=== PATIENT | female | born 1985 | race African-American/Black ===

== ENCOUNTER 2017-06-10 18:10 | Emergency (ER) | payer MEDICAID, OTHER ==
[~2017-06-10] VITALS: Ht 157.5 cm; Wt 65.0 kg
[~2017-06-10 18:10] MED LIST: CHLO.12%30 SSP; NAPR-576 PO; PENI500T PO
[2017-06-10 18:11] VITALS: BP 129/81; PULSE 95; RESP 16; TEMP 98.1; O2SAT 99
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
[2017-06-10] MEDS ORDERED: CYCL5TAB PO (18:47)
[2017-06-10] MEDS ORDERED: IBUP800T23 PO (18:47)
== END 2017-06-10 19:02 | disposition home or self-care (01) ==
LOC: NEPK 18:10
DX: S16.1XXA Strain of muscle, fascia and tendon at neck level, initial encounter (principal); M54.5 Low back pain; M25.562 Pain in left knee; R10.2 Pelvic and perineal pain; V43.52XA Car driver injured in collision with other type car in traffic accident, initial encounter; Z79.899 Other long term (current) drug therapy
CPT/HCPCS: 99283

== ENCOUNTER 2018-02-22 22:12 | Inpatient (IN) | payer MEDICAID, OTHER ==
[~2018-02-22] VITALS: Ht 157.5 cm; Wt 65.0 kg
[~2018-02-22 22:12] MED LIST changes: -CHLO.12%30 SSP; +CYCL5TAB PO; +IBUP1TAB7 PO; -NAPR-576 PO; -PENI500T PO
[2018-02-22 22:26] VITALS: BP 149/74; PULSE 79; RESP 18; TEMP 99.3; O2SAT 100
[2018-02-22] MEDS ORDERED: SODIUM CHLOR 0.9% 1000 ML INJ 1,000 ML IV SCH (22:39)
[2018-02-22] MEDS ORDERED: KETOROLAC TROMETHAMINE 30 MG/ML (IVP) VIAL IVP ONE (22:45)
[2018-02-22] MEDS ORDERED: SODIUM CHLORIDE 0.9% FLUSH 10 ML FLUSH IV FLUSH PRN (22:45)
[2018-02-22] MEDS ORDERED: ONDANSETRON ODT 4 MG TAB PO ONE (22:45)
[2018-02-22] MEDS ORDERED: MORPHINE SULFATE 8 MG/ML INJ IV PUSH ONE (22:45)
[2018-02-22 22:54] VITALS: RESP 16
[2018-02-22 22:57] LABS: AUTOMATED NEUTROPHIL # 5.7 TH/MM3 (1.8-7.7); BASOPHIL # 0.1 TH/MM3 (0-0.2); BASOPHIL % 0.8 % (0.0-2.0); EOSINOPHIL % 0.3 % (0.0-4.0); HEMATOCRIT 31.9 % (35.0-46.0); HEMOGLOBIN 10.7 GM/DL (11.6-15.3); LYMPH % 24.9 % (9.0-44.0); MEAN CELL VOLUME 85.5 FL (80.0-100.0); MEAN CORPUSCULAR HEMOGLOBIN 28.8 PG (27.0-34.0); MEAN CORPUSCULAR HGB CONC 33.7 % (32.0-36.0); MEAN PLATELET VOLUME 7.1 FL (7.0-11.0); MONO % 4.6 % (0.0-8.0); MONOCYTE # 0.4 TH/MM3 (0-0.9); NEUT % 69.4 % (16.0-70.0); PLATELET COUNT 560 TH/MM3 (150-450); RED BLOOD COUNT 3.73 MIL/MM3 (4.00-5.30); RED CELL DISTRIBUTION WIDTH 13.4 % (11.6-17.2); WHITE BLOOD COUNT 8.2 TH/MM3 (4.0-11.0)
--- NOTE | 2018-02-22 23:05 | PD ---
HPI Chief Complaint: GI Complaint Time Seen by Provider: 22:34 Travel History International Travel<30 days: No Contact w/Intl Traveler<30days: No Traveled to known affect area: No History of Present Illness HPI Patient is 32 years old she complains of abdominal pain. Location is right upper quadrant epigastrium. She has had the pain on and off for approximately 1 month. She was diagnosed with gallbladder stones initially 1 month ago and then again 1 week ago. She was discharged from [facility] ED with pain medication reports that have been helpful up until today. Pain is now constant and severe. She reports nausea and vomiting. She reports inability to tolerate p.o. intake. No fever. PFSH Past Medical History Medical History: Denies Significant Hx Blood Disorders: No Anxiety: No Depression: No Heart Rhythm Problems: Yes (HX OF SVT) Cancer: No Cardiovascular Problems: No Diminished Hearing: No Endocrine: No Genitourinary: Yes (previous STD) Immune Disorder: No Implanted Vascular Access Dvce: No Musculoskeletal: No Neurologic: No Psychiatric: No Reproductive: No Respiratory: No Immunizations Current: No Tetanus Vaccination: < 5 Years Influenza Vaccination: No PNEUMOCCOCAL Vaccine (Year): 2 ?: Not LMP: 02/14/2018 Menopausal: No : 1 Para: 1 Miscarriage: 0 : 0 Ectopic : No Ovarian Cysts: No Dilation and Curettage (D&C): No Tubal Ligation: No Past Surgical History Section: Yes Gynecologic Surgery: Yes () Other Surgery: Yes Social History Alcohol Use: Yes (occasionally) Tobacco Use: No Substance Use: No (PT DENIES) Allergies-Medications (Allergen,Severity, Reaction): Coded Allergies: No Known Allergies (Verified Adverse Reaction, Unknown, 02/22/18) Reported Meds & Prescriptions Reported Meds & Active Scripts Active Review of Systems Except as stated in HPI: all other systems reviewed are Neg General / Constitutional: No: Fever Physical Exam Narrative GENERAL: 32 yo F, pleasant, moderate distress Vital Signs Date Time Temp Pulse Resp B/P (MAP) Pulse Ox O2 Delivery O2 Flow Rate FiO2 02/22/18 22:54 16 02/22/18 22:26 99.3 79 18 149/74 (99) 100 SKIN: Warm and dry. HEAD: Atraumatic. Normocephalic. EYES: Pupils equal and round. No scleral icterus. No injection or drainage. ENT: No nasal bleeding or discharge. Mucous membranes pink and moist. NECK: Trachea midline. No JVD. CARDIOVASCULAR: Regular rate and rhythm. RESPIRATORY: No accessory muscle use. Clear to auscultation. Breath sounds equal bilaterally. ABDOMEN: Diffuse TTP to light tough. Soft. No distension. MUSCULOSKELETAL: Extremities without clubbing, cyanosis, or edema. No obvious deformities. NEUROLOGICAL: Awake and alert. No obvious cranial nerve deficits. Motor grossly within normal limits. Five out of 5 muscle strength in the arms and legs. Normal speech. PSYCHIATRIC: Appropriate mood and affect; insight and judgment normal. Data Data Last Documented VS Vital Signs Date Time Temp Pulse Resp B/P (MAP) Pulse Ox O2 Delivery O2 Flow Rate FiO2 02/22/18 23:46 18 02/22/18 22:26 99.3 79 149/74 (99) 100 Orders Orders Complete Blood Count With Diff (02/22/18 22:39) Comprehensive Metabolic Panel (02/22/18 22:39) Lipase (02/22/18 22:39) Us Abdomen Gallbladder (02/22/18 ) Iv Access Insert/Monitor (02/22/18 22:39) Ecg Monitoring (02/22/18 22:39) Oximetry (02/22/18 22:39) Sodium Chlor 0.9% 1000 Ml Inj (Ns 1000 M (02/22/18 22:39) Sodium Chloride 0.9% Flush (Ns Flush) (02/22/18 22:45) Ketorolac Inj (Toradol Inj) (02/22/18 22:45) Morphine Inj (Morphine Inj) (02/22/18 22:45) Ed Urine Pregnancytest Poc (02/22/18 22:39) Ondansetron Odt (Zofran Odt) (02/22/18 22:45) Piperacil-Tazo 4.5 Gm Premix (Zosyn 4.5 (02/22/18 23:45) Admit Order (Ed Use Only) (02/23/18 ) Vital Signs (Adult) Q4H (02/23/18 00:16) Diet Npo (02/23/18 Breakfast) Activity Oob With Assistance (02/23/18 00:16) Labs Laboratory Tests Test 02/22/18 22:45 White Blood Count 8.2 TH/MM3 Red Blood Count 3.73 MIL/MM3 Hemoglobin 10.7 GM/DL Hematocrit 31.9 % Mean Corpuscular Volume 85.5 FL Mean Corpuscular Hemoglobin 28.8 PG Mean Corpuscular Hemoglobin Concent 33.7 % Red Cell Distribution Width 13.4 % Platelet Count 560 TH/MM3 Mean Platelet Volume 7.1 FL Neutrophils (%) (Auto) 69.4 % Lymphocytes (%) (Auto) 24.9 % Monocytes (%) (Auto) 4.6 % Eosinophils (%) (Auto) 0.3 % Basophils (%) (Auto) 0.8 % Neutrophils # (Auto) 5.7 TH/MM3 Lymphocytes # (Auto) 2.0 TH/MM3 Monocytes # (Auto) 0.4 TH/MM3 Eosinophils # (Auto) 0.0 TH/MM3 Basophils # (Auto) 0.1 TH/MM3 CBC Comment DIFF FINAL Differential Comment Blood Urea Nitrogen 7 MG/DL Creatinine 0.75 MG/DL Random Glucose 94 MG/DL Total Protein 7.5 GM/DL Albumin 3.5 GM/DL Calcium Level 8.7 MG/DL Alkaline Phosphatase 271 U/L Aspartate Amino Transf (AST/SGOT) 223 U/L Alanine Aminotransferase (ALT/SGPT) 338 U/L Total Bilirubin 3.7 MG/DL Sodium Level 140 MEQ/L Potassium Level 3.4 MEQ/L Chloride Level 104 MEQ/L Carbon Dioxide Level 27.0 MEQ/L Anion Gap 9 MEQ/L Estimat Glomerular Filtration Rate 107 ML/MIN Lipase 103 U/L [facility] Medical Decision Making Medical Screen Exam Complete: Yes Emergency Medical Condition: Yes Medical Record Reviewed: Yes Differential Diagnosis Constipation, Gastritis, Acute Cholecystitis, Biliary Colic, Pancreatitis, CHU , Hepatitis, Bowel Obstruction, Cystitis, Mesenteric Ischemia, AAA, Appendicitis , Renal Stone/Hydronephrosis, GERD, perforated viscous Narrative Course CBC & BMP Diagram 02/22/18 22:45 Total Protein 7.5, Albumin 3.5, Calcium Level 8.7, Alkaline Phosphatase 271 H, Aspartate Amino Transf (AST/SGOT) 223 H, Alanine Aminotransferase (ALT/SGPT) 338 H, Total Bilirubin 3.7 H GB US: stones and sludge are seen, potential pericholecystic fluid however minimal to be present on review the images Zosyn started IV fluids started. d/w Dr Gresham for [facility] service Diagnosis Primary Impression: Cholecystitis Admitting Information Admitting Physician Requests: Admit Quentin Klein MD February 22, 2018 23:05
[2018-02-22 23:29] LABS: ALKALINE PHOSPHATASE 271 U/L (45-117); TOTAL BILIRUBIN ADULT 3.7 MG/DL (0.2-1.0); TOTAL PROTEIN 7.5 GM/DL (6.4-8.2)
[2018-02-22 23:31] LABS: ALBUMIN 3.5 GM/DL (3.4-5.0); ALT (GPT) 338 U/L (10-53); AST (GOT) 223 U/L (15-37); BLOOD UREA NITROGEN 7 MG/DL (7-18); CALCIUM 8.7 MG/DL (8.5-10.1); CHLORIDE 104 MEQ/L (98-107); CREATININE 0.75 MG/DL (0.50-1.00); GLOMERULAR FILTRATION RATE 107 ML/MIN (>89); GLUCOSE,RANDOM 94 MG/DL (74-106); SODIUM (NA) 140 MEQ/L (136-145)
[2018-02-22] MEDS ORDERED: PIPERACIL-TAZO 4.5 GM PREMIX 100 ML IV ONE (23:45)
--- NOTE | 2018-02-22 23:46 | RADRPT ---
EXAM DATE/TIME: 02/22/2018 23:04 [place] COMPARISON: No previous studies available for comparison. INDICATIONS : RUQ pain. MEDICAL HISTORY : Irregular heart beat. RUQ pain. SURGICAL HISTORY : section. ENCOUNTER: Initial ACUITY: 1 day PAIN SCORE: 10/10 LOCATION: Right upper quadrant MEASUREMENTS: LIVER: 17.8 cm length COMMON DUCT: 7 mm RIGHT KIDNEY: 9.8 x 4.3 x 3.3 cm FINDINGS: LIVER: Normal echotexture without focal lesion or ductal dilatation. COMMON DUCT: No intraluminal mass or stone visualized. GALLBLADDER: Multiple gallstones present with gallbladder sludge. PANCREAS: The visualized portions are within normal limits. RIGHT KIDNEY: No evidence of hydronephrosis, stone, or mass. CONCLUSION: 1. Multiple gallstones with gallbladder sludge. No acute findings. Bharathi Gerber MD on February 22, 2018 at 23:42 Board Certified Radiologist. This report was verified electronically.
[2018-02-23] MEDS ORDERED: LACTULOSE SYRUP 20 GM/30 ML CUP PO PRN (00:45)
[2018-02-23] MEDS ORDERED: ACETAMINOPHEN 325 MG TAB PO PRN (00:45)
[2018-02-23] MEDS ORDERED: NALOXONE HCL 0.4 MG/ML AMP IV PUSH PRN (00:45)
[2018-02-23] MEDS ORDERED: SENNOSIDES 8.6 MG TAB PO PRN (00:45)
[2018-02-23] MEDS ORDERED: SODIUM CHLORIDE 0.9% FLUSH 10 ML FLUSH IV FLUSH PRN (00:45)
[2018-02-23] MEDS ORDERED: MAGNESIUM HYDROXIDE SUSP 30 ML CUP PO PRN (00:45)
[2018-02-23] MEDS ORDERED: BISACODYL 10 MG SUPP RECTAL PRN (00:45)
[2018-02-23 01:02] VITALS: BP 132/77; PULSE 64; RESP 16; O2SAT 100
[2018-02-23] MEDS: SODIUM CHLOR 0.9% 1000 ML INJ 1,000 ML IV SCH ×2 (01:41→12:31)
--- NOTE | 2018-02-23 01:50 | HHI.HP ---
[facility] No Primary Care Physician Admission Diagnosis Cholecystitis Diagnoses: Travel History International Travel<30 Days: No Contact w/Intl Traveler <30 Da: No Traveled to Known Affected Are: No History of Present Illness 32-year-old female with biliary colic/gallstones presents to the emergency department for evaluation of abdominal pain. The patient reports that approximately 2 months ago she was initially diagnosed with gallstones. She had a repeat episode last Friday where she was seen at [facility] and given pain medication and told to follow-up with a general surgeon. Patient has been unable to obtain a follow-up appointment and felt her pain was moderately well controlled on her pain medication until 2:30 PM yesterday. The patient reports she started having upper quadrant (right greater than left) abdominal pain that radiated to her back. She denies any emesis. No diarrhea. No fevers/chills. No chest pain or shortness of breath. No weakness. No lateralizing signs/symptoms. Review of Systems Except as stated in HPI: all other systems reviewed are Neg Past Family Social History Past Medical History Biliary colic Past Surgical History 2 Reported Medications Reported Meds & Active Scripts Active Allergies: Coded Allergies: No Known Allergies (Verified Adverse Reaction, Unknown, 02/22/18) Family History Negative for CAD/DM Social History Smokes approximately 2-3 cigarettes daily. Occasional alcohol. Denies illicit drugs. Physical Exam Vital Signs Vital Signs Date Time Temp Pulse Resp B/P (MAP) Pulse Ox O2 Delivery O2 Flow Rate FiO2 02/23/18 01:03 02/23/18 01:02 64 16 132/77 (95) 100 Room Air 02/22/18 23:46 18 02/22/18 22:54 16 02/22/18 22:26 99.3 79 18 149/74 (99) 100 Physical Exam GENERAL: -[place] female sitting up in bed SKIN: No rashes, ecchymoses or lesions. Cool and dry. HEAD: Atraumatic. Normocephalic. No temporal or scalp tenderness. EYES: Pupils equal round and reactive. Extraocular motions intact. No scleral icterus. No injection or drainage. ENT: Nose without bleeding, purulent drainage or septal hematoma. Throat without erythema, tonsillar hypertrophy or exudate. Uvula midline. Airway patent. NECK: Trachea midline. No JVD or lymphadenopathy. Supple, nontender, no meningeal signs. CARDIOVASCULAR: Regular rate and rhythm without murmurs, gallops, or rubs. RESPIRATORY: Clear to auscultation. Breath sounds equal bilaterally. No wheezes , rales, or rhonchi. GASTROINTESTINAL: Abdomen soft, tender to palpation worse in the right upper quadrant, nondistended. No hepato-splenomegaly, or palpable masses. No guarding. Negative Larson sign. MUSCULOSKELETAL: Extremities without clubbing, cyanosis, or edema. No joint tenderness, effusion, or edema noted. No calf tenderness. NEUROLOGICAL: Awake and alert. Cranial nerves II through XII intact. Motor and sensory grossly within normal limits. Normal speech. Laboratory Laboratory Tests Test 02/22/18 22:45 White Blood Count 8.2 Red Blood Count 3.73 Hemoglobin 10.7 Hematocrit 31.9 Mean Corpuscular Volume 85.5 Mean Corpuscular Hemoglobin 28.8 Mean Corpuscular Hemoglobin Concent 33.7 Red Cell Distribution Width 13.4 Platelet Count 560 Mean Platelet Volume 7.1 Neutrophils (%) (Auto) 69.4 Lymphocytes (%) (Auto) 24.9 Monocytes (%) (Auto) 4.6 Eosinophils (%) (Auto) 0.3 Basophils (%) (Auto) 0.8 Neutrophils # (Auto) 5.7 Lymphocytes # (Auto) 2.0 Monocytes # (Auto) 0.4 Eosinophils # (Auto) 0.0 Basophils # (Auto) 0.1 CBC Comment DIFF FINAL Differential Comment Blood Urea Nitrogen 7 Creatinine 0.75 Random Glucose 94 Total Protein 7.5 Albumin 3.5 Calcium Level 8.7 Alkaline Phosphatase 271 Aspartate Amino Transf (AST/SGOT) 223 Alanine Aminotransferase (ALT/SGPT) 338 Total Bilirubin 3.7 Sodium Level 140 Potassium Level 3.4 Chloride Level 104 Carbon Dioxide Level 27.0 Anion Gap 9 Estimat Glomerular Filtration Rate 107 Lipase 103 Result Diagram: 02/22/18224402/22/182244 Caprini VTE Risk Assessment Caprini VTE Risk Assessment: No/Low Risk (score <= 1) Caprini Risk Assessment Model Point Value = 1 Point Value = 2 Point Value = 3 Point Value = 5 Age 41-60 Minor surgery BMI > 25 kg/m2 Swollen legs Varicose veins or History of unexplained or recurrent spontaneous Oral contraceptives or hormone replacement Sepsis (< 1 month) Serious lung disease, including pneumonia (< 1 month) Abnormal pulmonary function Acute myocardial infarction Congestive heart failure (< 1 month) History of inflammatory bowel disease Medical patient at bed rest Age 61-74 Arthroscopic surgery Major open surgery (> 45 min) Laparoscopic surgery (> 45 min) Malignancy Confined to bed (> 72 hours) Immobilizing plaster cast Central venous access Age >= 75 History of VTE Family history of VTE Factor V Leiden Prothrombin [id number] Lupus anticoagulant Anticardiolipin antibodies Elevated serum homocysteine Heparin-induced thrombocytopenia Other congenital or acquired thrombophilia Stroke (< 1 month) Elective arthroplasty Hip, pelvis, or leg fracture Acute spinal cord injury (< 1 month) Prophylaxis Regimen Total Risk Factor Score Risk Level Prophylaxis Regimen 0-1 Low Early ambulation 2 Moderate Order ONE of the following: *Sequential Compression Device (SCD) *Heparin 5000 units SQ BID 3-4 Higher Order ONE of the following medications: *Heparin 5000 units SQ TID *Enoxaparin/Lovenox 40 mg SQ daily (WT < 150 kg, CrCl > 30 mL/min) *Enoxaparin/Lovenox 30 mg SQ daily (WT < 150 kg, CrCl > 10-29 mL/min) *Enoxaparin/Lovenox 30 mg SQ BID (WT < 150 kg, CrCl > 30 mL/min) AND/OR *Sequential Compression Device (SCD) 5 or more Highest Order ONE of the following medications: *Heparin 5000 units SQ TID (Preferred with Epidurals) *Enoxaparin/Lovenox 40 mg SQ daily (WT < 150 kg, CrCl > 30 mL/min) *Enoxaparin/Lovenox 30 mg SQ daily (WT < 150 kg, CrCl > 10-29 mL/min) *Enoxaparin/Lovenox 30 mg SQ BID (WT < 150 kg, CrCl > 30 mL/min) AND *Sequential Compression Device (SCD) Assessment and Plan Assessment and Plan Assessment/plan: 1. Abdominal pain/biliary colic/gallstones Gallbladder ultrasound multiple gallstones and gallbladder sludge Patient with transaminitis and total bilirubin of 3.7 Concern for retained stone or evolving cholecystitis Zosyn General surgery consulted, appreciate assistance Morphine for pain FEN N.p.o. Electrolytes: Monitor and replete as needed NS at 85 cc/hour Linda Gresham MD February 23, 2018 01:50
[2018-02-23 03:08] VITALS: BP 111/64; PULSE 67; RESP 16; TEMP 98.8; O2SAT 99
[2018-02-23] MEDS ORDERED: KETOROLAC TROMETHAMINE 30 MG/ML (IVP) VIAL IV PUSH ONE (05:15)
[2018-02-23 08:03] VITALS: BP 120/75; PULSE 65; RESP 16; TEMP 98.1; O2SAT 99
--- NOTE | 2018-02-23 08:08 | HHI.PR ---
Subjective Remarks Follow-up cholecystitis/choledocholithiasis? February 23, 2018-patient seen and examined, continued to complain of abdominal pain with radiation to her back. Denies any nausea vomiting. States, she was previously seen at [facility] and evaluated by general surgery and given follow-up appointment however she could not get booked for surgery. States the pain got worse and decided to come to the hospital yesterday. Patient denies any history of alcohol abuse only states social and drinks every other week Objective Vitals Vital Signs Date Time Temp Pulse Resp B/P (MAP) Pulse Ox O2 Delivery O2 Flow Rate FiO2 02/23/18 03:08 98.8 67 16 111/64 (80) 99 02/23/18 01:03 02/23/18 01:02 64 16 132/77 (95) 100 Room Air 02/22/18 23:46 18 02/22/18 22:54 16 02/22/18 22:26 99.3 79 18 149/74 (99) 100 I/O 02/22/18 02/22/18 02/22/18 02/23/18 02/23/18 02/23/18 07:00 15:00 23:00 07:00 15:00 23:00 Intake Total 1100 ml Balance 1100 ml Intake IV Total 1100 ml Result Diagram: 02/22/18 2245 02/22/18 2245 Imaging Last Impressions Gall Bladder Ultrasound 02/22/18 0000 Signed Impressions: Service Date/Time: Thursday, February 22, 2018 23:04 - CONCLUSION: 1. Multiple gallstones with gallbladder sludge. No acute findings. Bharathi Gerber MD Objective Remarks GENERAL: NAD SKIN: Warm and dry. HEAD: Normocephalic. EYES: No scleral icterus. No injection or drainage. NECK: Supple, trachea midline. No JVD or lymphadenopathy. CARDIOVASCULAR: Regular rate and rhythm without murmurs, gallops, or rubs. RESPIRATORY: Breath sounds equal bilaterally. No accessory muscle use. GASTROINTESTINAL: Abdomen soft, mildly tender, nondistended. +BS MUSCULOSKELETAL: No cyanosis, or edema. BACK: Nontender without obvious deformity. No CVA tenderness. A/P Problem List: (1) Cholelithiasis ICD Code: K80.20 - Calculus of gallbladder without cholecystitis without obstruction (2) Cholecystitis ICD Code: K81.9 - Cholecystitis, unspecified Status: Acute Assessment and Plan 32-year-old female 1. Abdominal pain/biliary colic/gallstones Gallbladder ultrasound multiple gallstones and gallbladder sludge Patient with transaminitis and total bilirubin of 3.7 Concern for retained stone or evolving cholecystitis Continue with Zosyn Hepatitis profile pending General surgery consulted, appreciate assistance Keep n.p.o. and continue morphine for pain Aneesh Metcalf MD February 23, 2018 08:08
[2018-02-23] MEDS: DOCUSATE SODIUM 50 MG/SENNA 8.6 MG TAB PO SCH ×2 (09:00→21:34)
[2018-02-23] MEDS: SODIUM CHLORIDE 0.9% FLUSH 10 ML FLUSH IV FLUSH SCH ×2 (09:00→21:00)
--- NOTE | 2018-02-23 10:28 | PD.CONS ---
HPI Service General Surgery Consult Requested By Dr. Gresham Reason for Consult gallbladder disease Primary Care Physician No Primary Care Physician History of Present Illness 32 yo F presents with abdominal pain. She was seen at [facility] last Friday about a week and a half ago for cholecystitis. She was discharged and has had epigastric and right upper quadrant abdominal pain radiating to the back persistently since that time. She has had nausea and vomiting and decreased oral intake. Past surgical history includes 2 C-sections. On evaluation here, she had normal white blood count, but bilirubin of 3.7 as well as elevated transaminases and alkaline phosphatase. Ultrasound of the gallbladder shows gallstones and sludge with 7 mm common bile duct. Review of Systems Constitutional: COMPLAINS OF: Change in appetite, DENIES: Fever, Chills Eyes: DENIES: Vision loss Ears, nose, mouth, throat: DENIES: Nasal discharge, Oral lesions Respiratory: DENIES: Cough, Shortness of breath Cardiovascular: DENIES: Chest pain, Palpitations Gastrointestinal: COMPLAINS OF: Abdominal pain, Nausea, Vomiting Musculoskeletal: DENIES: Joint Swelling, Back pain Integumentary: DENIES: Pruritus, Rash Neurologic: DENIES: Paresthesias, Seizures Past Family Social History Past Medical History None Past Surgical History 2 Reported Medications None Allergies: Coded Allergies: No Known Allergies (Verified Adverse Reaction, Unknown, 02/22/18) Active Ordered Medications Current Medications Medications (Trade) Dose Ordered Sig/Bud Route Start Time Stop Time Status Last Admin (NS Flush) 2 ml UNSCH PRN IV FLUSH 02/22/18 22:45 Piperacillin Sod/ Tazobactam Sod 50 ml @ 100 mls/hr Q6H IV 02/24/18 06:00 Sodium Chloride 1,000 ml @ 85 mls/hr [id number] IV 02/23/18 00:45 02/23/18 01:41 (NS Flush) 2 ml UNSCH PRN IV FLUSH 02/23/18 00:45 (NS Flush) 2 ml BID IV FLUSH 02/23/18 09:00 (Tylenol) 650 mg Q4H PRN PO 02/23/18 00:45 (Zofran Odt) 4 mg Q6H PRN SL 02/23/18 00:45 (Narcan Inj) 0.4 mg UNSCH PRN IV PUSH 02/23/18 00:45 (Jannet-Colace) 1 tab BID PO 02/23/18 09:00 (Milk Of Magnesia Liq) 30 ml Q12H PRN PO 02/23/18 00:45 (Senokot) 17.2 mg Q12H PRN PO 02/23/18 00:45 (Dulcolax Supp) 10 mg DAILY PRN RECTAL 02/23/18 00:45 (Lactulose Liq) 30 ml DAILY PRN PO 02/23/18 00:45 (Morphine Inj) 4 mg Q3H PRN IV PUSH 02/23/18 00:45 Family History Noncontributory Social History Occasional alcohol. Smokes a few cigarettes a day. Physical Exam Vital Signs Vital Signs Date Time Temp Pulse Resp B/P (MAP) Pulse Ox O2 Delivery O2 Flow Rate FiO2 02/23/18 08:03 98.1 65 16 120/75 (90) 99 02/23/18 03:08 98.8 67 16 111/64 (80) 99 02/23/18 01:03 02/23/18 01:02 64 16 132/77 (95) 100 Room Air 02/22/18 23:46 18 02/22/18 22:54 16 02/22/18 22:26 99.3 79 18 149/74 (99) 100 Physical Exam GENERAL: Awake and alert. No acute distress. Cooperative. HEAD: Normocephalic. Atraumatic. EYES: Pupils equal round and reactive to light bilaterally. No scleral icterus. ENT: Moist oral mucosa. NECK: Trachea midline. CHEST: Nonlabored breathing. No respiratory distress. CARDIOVASCULAR: Regular rate and rhythm. ABDOMEN: Mild distention. Moderate tenderness to palpation in the epigastrium and right upper quadrant. EXTREMITIES: No cyanosis or edema. SKIN: Warm, dry, nonjaundiced. Laboratory Laboratory Tests Test 02/22/18 22:45 02/23/18 08:29 White Blood Count 8.2 Red Blood Count 3.73 Hemoglobin 10.7 Hematocrit 31.9 Mean Corpuscular Volume 85.5 Mean Corpuscular Hemoglobin 28.8 Mean Corpuscular Hemoglobin Concent 33.7 Red Cell Distribution Width 13.4 Platelet Count 560 Mean Platelet Volume 7.1 Neutrophils (%) (Auto) 69.4 Lymphocytes (%) (Auto) 24.9 Monocytes (%) (Auto) 4.6 Eosinophils (%) (Auto) 0.3 Basophils (%) (Auto) 0.8 Neutrophils # (Auto) 5.7 Lymphocytes # (Auto) 2.0 Monocytes # (Auto) 0.4 Eosinophils # (Auto) 0.0 Basophils # (Auto) 0.1 CBC Comment DIFF FINAL Differential Comment Blood Urea Nitrogen 7 Creatinine 0.75 Random Glucose 94 Total Protein 7.5 Albumin 3.5 Calcium Level 8.7 Alkaline Phosphatase 271 Aspartate Amino Transf (AST/SGOT) 223 Alanine Aminotransferase (ALT/SGPT) 338 Total Bilirubin 3.7 Sodium Level 140 Potassium Level 3.4 Chloride Level 104 Carbon Dioxide Level 27.0 Anion Gap 9 Estimat Glomerular Filtration Rate 107 Lipase 103 Ethyl Alcohol Level LESS THAN 3 Result Diagram: 02/22/18 2245 02/22/18 2245 Imaging Last Impressions Gall Bladder Ultrasound 02/22/18 0000 Signed Impressions: Service Date/Time: Thursday, February 22, 2018 23:04 - CONCLUSION: 1. Multiple gallstones with gallbladder sludge. No acute findings. Bharathi Gerber MD Assessment and Plan Assessment and Plan 32-year-old female with biliary colic and elevated LFTs. We need to rule out a common bile duct stone. I have ordered an MRCP. Repeat CBC and LFTs in the morning. If MRCP shows stone in the common duct need gastroenterology evaluation. Remain n.p.o. at this time. GhassanDeshawn marie MD February 23, 2018 10:28
[2018-02-23] MEDS ORDERED: KETOROLAC TROMETHAMINE 30 MG/ML (IVP) VIAL IV PUSH PRN (10:45)
--- NOTE | 2018-02-23 12:19 | RADRPT ---
EXAM DATE/TIME: 02/23/2018 11:07 [facility] COMPARISON: MRV BRAIN W/O CONTRAST, December 28, 2014, 10:09. INDICATIONS : Abdominal pain. Vomitting. MEDICAL HISTORY : None. SURGICAL HISTORY : section. ENCOUNTER: Initial ACUITY: 2 weeks PAIN SCORE: 10/10 LOCATION: upper quadrant abdomen TECHNIQUE: Multiplanar, multisequence magnetic resonance imaging of the abdomen was performed. High-resolution 3D dataset was utilized to reconstruct maximum-intensity projection (MIP) images. FINDINGS: The intrahepatic ducts are normal in caliber. The right and left hepatic duct is normal in caliber. T he proper hepatic is normal in caliber. There are numerous punctate gallstones evident within the gallbladder. The gallbladder wall appears m ildly thickened. There is no evidence of pericholecystic fluid. The gallbladder does appear mildly di stended. The reformatted images do demonstrate a single punctate filling defect in the distal common bile duct . This measures only approximately 2 mm. It is possible this represents a punctate stone though it is only visualized in a single projection. The pancreatic duct is normal in caliber. The hepatic parenchyma is unremarkable in appearance. The spleen, pancreas, adrenal glands and kidney s are intact. There is no retroperitoneal adenopathy. There is no free fluid identified. There is very limited imaging of the pelvis on the coronal images. There is a large cystic structure in the right adnexa measuring at least 11 x 6.6 cm. In addition, there is a 2.2 cm cyst arising in th e left adnexa. Pelvic ultrasound would be of benefit for further assessment. CONCLUSION: The examination demonstrates a distended gallbladder with numerous punctate stones within the gallbla dder. The gallbladder wall appears mildly thickened. There is a punctate filling defects seen in the distal duct on a single projection on the MRCP T2 images. This may represent a 1 mm stone in the dist al duct. The duct is at the upper limits of normal in size measuring approximate 6 mm. There is a large cystic structure arising in the right adnexa which is only partially visualized. Pre sumably, this is ovarian in origin it measures approximately 11.0 x 6.6 cm. Pelvic ultrasound would b e of benefit for further assessment. Quentin Simpson MD on February 23, 2018 at 11:54 Board Certified Radiologist. This report was verified electronically.
[2018-02-23] MEDS: ONDANSETRON ODT 4 MG TAB SL PRN ×2 (13:17→15:37)
--- NOTE | 2018-02-23 14:05 | PD.CONS ---
HPI History of Present Illness This is a 32 year old female with hx gallstones who presented to ER with abd pain, n/v. ONset 1 week ago. A week ago ago she went to [facility] ER and had CT and it showed ovarian cyst. She was sent home with pain meds. She was starting to feel better and then yesterday had worsening of pain. The pain is in the RUQ and epigastrium. Never had pain like this before. Denies heavy etoh consumption. Denies hx pancreatitis, liver problems. Not on blood thinners. MRCP showed filling defects, possible tone, CBD 6mm, gallstones, distended gallbladder. (Luba Mancia) PFSH Past Medical History Biliary colic Past Surgical History 2 (Luba Mancia) Coded Allergies: No Known Allergies (Verified Adverse Reaction, Unknown, 02/22/18) Family History Negative for CAD/DM Social History Smokes approximately 2-3 cigarettes daily. Occasional alcohol. Denies illicit drugs. (Luba Mancia) Review of Systems Constitutional: DENIES: Fever Endocrine: DENIES: Polydipsia Eyes: DENIES: Blurred vision Ears, nose, mouth, throat: DENIES: Hearing loss Respiratory: DENIES: Cough Cardiovascular: DENIES: Chest pain Gastrointestinal: COMPLAINS OF: Abdominal pain, Nausea, Vomiting, DENIES: Diarrhea, Hematemesis Genitourinary: DENIES: Urinary incontinence Musculoskeletal: COMPLAINS OF: Muscle aches Integumentary: DENIES: Abnormal pigmentation Hematologic/lymphatic: DENIES: Bruising Immunologic/allergic: DENIES: Eczema Neurologic: DENIES: Abnormal gait Psychiatric: DENIES: Confusion (Luba Mancia) GI Exam Vitals I&O Vital Signs Date Time Temp Pulse Resp B/P (MAP) Pulse Ox O2 Delivery O2 Flow Rate FiO2 02/23/18 08:03 98.1 65 16 120/75 (90) 99 02/23/18 03:08 98.8 67 16 111/64 (80) 99 02/23/18 01:03 02/23/18 01:02 64 16 132/77 (95) 100 Room Air 02/22/18 23:46 18 02/22/18 22:54 16 02/22/18 22:26 99.3 79 18 149/74 (99) 100 I/O 02/22/18 02/22/18 02/22/18 02/23/18 02/23/18 02/23/18 07:00 15:00 23:00 07:00 15:00 23:00 Intake Total 1100 ml Balance 1100 ml Intake IV Total 1100 ml Imaging Last Impressions Cholangiopancreatography MRI 02/23/18 0000 Signed Impressions: Service Date/Time: Friday, February 23, 2018 11:07 - CONCLUSION: The examination demonstrates a distended gallbladder with numerous punctate stones within the gallbladder. The gallbladder wall appears mildly thickened. There is a punctate filling defects seen in the distal duct on a single projection on the MRCP T2 images. This may represent a 1 mm stone in the distal duct. The duct is at the upper limits of normal in size measuring approximate 6 mm. There is a large cystic structure arising in the right adnexa which is only partially visualized. Presumably, this is ovarian in origin it measures approximately 11.0 x 6.6 cm. Pelvic ultrasound would be of benefit for further assessment. Quentin Simpson MD Gall Bladder Ultrasound 02/22/18 0000 Signed Impressions: Service Date/Time: Thursday, February 22, 2018 23:04 - CONCLUSION: 1. Multiple gallstones with gallbladder sludge. No acute findings. Bharathi Gerber MD Laboratory Test 02/22/18 22:45 02/23/18 08:29 White Blood Count 8.2 TH/MM3 Red Blood Count 3.73 MIL/MM3 Hemoglobin 10.7 GM/DL Hematocrit 31.9 % Mean Corpuscular Volume 85.5 FL Mean Corpuscular Hemoglobin 28.8 PG Mean Corpuscular Hemoglobin Concent 33.7 % Red Cell Distribution Width 13.4 % Platelet Count 560 TH/MM3 Mean Platelet Volume 7.1 FL Neutrophils (%) (Auto) 69.4 % Lymphocytes (%) (Auto) 24.9 % Monocytes (%) (Auto) 4.6 % Eosinophils (%) (Auto) 0.3 % Basophils (%) (Auto) 0.8 % Neutrophils # (Auto) 5.7 TH/MM3 Lymphocytes # (Auto) 2.0 TH/MM3 Monocytes # (Auto) 0.4 TH/MM3 Eosinophils # (Auto) 0.0 TH/MM3 Basophils # (Auto) 0.1 TH/MM3 CBC Comment DIFF FINAL Differential Comment Blood Urea Nitrogen 7 MG/DL Creatinine 0.75 MG/DL Random Glucose 94 MG/DL Total Protein 7.5 GM/DL Albumin 3.5 GM/DL Calcium Level 8.7 MG/DL Alkaline Phosphatase 271 U/L Aspartate Amino Transf (AST/SGOT) 223 U/L Alanine Aminotransferase (ALT/SGPT) 338 U/L Total Bilirubin 3.7 MG/DL Sodium Level 140 MEQ/L Potassium Level 3.4 MEQ/L Chloride Level 104 MEQ/L Carbon Dioxide Level 27.0 MEQ/L Anion Gap 9 MEQ/L Estimat Glomerular Filtration Rate 107 ML/MIN Lipase 103 U/L Ethyl Alcohol Level LESS THAN 3 MG/DL Hepatitis A IgM Antibody NONREACTIVE Hepatitis B Surface Antigen NONREACTIVE Hepatitis B Core IgM Antibody NONREACTIVE Hepatitis C IgG Antibody NONREACTIVE Physical Examination HEENT: Pupils round and reactive to light; normocephalic; atraumatic; no jaundice. Throat is clear. NECK: Neck is supple, no JVD, no lymphadenopathy. CHEST: Chest is clear to auscultation and percussion. CARDIAC: Regular rate and rhythm with no murmur gallop or rubs. ABDOMEN: Soft, nondistended, nontender; no hepatosplenomegaly; bowel sounds are present in all four quadrants. EXTREMITIES: No clubbing, cyanosis, or edema. SKIN: Normal; no rash; no jaundice. BOTTLE CAPPER: No focal deficits; alert and oriented times three. (Luba Mancia) Assessment and Plan Plan ASSESSMENT - abd pain, n/v - suspect choledocholithiasis. MRCP shows poss CBD stone, CBD 6mm, filling defect, gallstones, GB distended. US showed gallstones and sludge. GS following. - elevated LFTs - obstructive pattern. hep panel neg. denies heavy drinking PLAN - ERCP tomorrow - NPO after MN - obtain consent - monitor labs - further recs to follow pt seen by myself and Dr Melchor and this note is on her behalf (Luba Mancia) Physician Comments seen, examined agree with above (Dafne Melchor MD) Luba Mancia February 23, 2018 14:05 Dafne Melchor MD February 23, 2018 15:52
[2018-02-23] MEDS: MORPHINE SULFATE 4 MG/ML INJ IV PUSH PRN ×2 (15:37→19:46)
[2018-02-23 17:06] VITALS: BP 148/74; PULSE 61; RESP 16; TEMP 98.6; O2SAT 97
[2018-02-23] MEDS ORDERED: PROCHLORPERAZINE INJ 10 MG/2 ML VIAL IV PUSH PRN (18:45)
[2018-02-23 19:31] VITALS: BP 141/72; PULSE 63; RESP 16; TEMP 99; O2SAT 98
[2018-02-23 23:35] VITALS: BP 116/59; PULSE 77; RESP 16; TEMP 98.7; O2SAT 96
[2018-02-24] MEDS: SODIUM CHLOR 0.9% 1000 ML INJ 1,000 ML IV SCH ×3 (00:06→17:46)
[2018-02-24] MEDS: MORPHINE SULFATE 4 MG/ML INJ IV PUSH PRN (01:17)
[2018-02-24] MEDS ORDERED: CHLORHEXIDINE GLUCONATE 2 % 1 PACK (2 CLOTHS) TOPICAL PRN ×3 (03:00→22:15)
[2018-02-24] MEDS ORDERED: LACTATED RINGER'S 1000 ML IV PRN ×3 (03:00→22:15)
[2018-02-24] MEDS ORDERED: METOPROLOL TARTRATE 25 MG TAB PO PRN ×2 (03:00→16:00)
[2018-02-24] MEDS ORDERED: POVIDONE IODINE 5% (ANTISEPSIS KIT) 4 APPLICATIONS EACH NARE PRN ×3 (03:00→22:15)
[2018-02-24] MEDS ORDERED: SODIUM CHLORID 0.9% 500 ML IV PRN ×3 (03:00→22:15)
[2018-02-24] MEDS ORDERED: INSULIN HUMAN REGULAR 1,000 UNITS/10 ML VIAL SQ PRN (03:00)
[2018-02-24 03:39] VITALS: BP 104/53; PULSE 85; RESP 16; TEMP 98.5; O2SAT 95
[2018-02-24] MEDS: PIPERACIL-TAZO 3.375 GM PREMIX 50 ML IV SCH ×3 (04:49→18:42)
[2018-02-24 07:02] LABS: AUTOMATED NEUTROPHIL # 6.6 TH/MM3 (1.8-7.7); BASOPHIL % 0.3 % (0.0-2.0); EOSINOPHIL % 0.2 % (0.0-4.0); HEMATOCRIT 29.2 % (35.0-46.0); HEMOGLOBIN 9.7 GM/DL (11.6-15.3); LYMPHOCYTE # 1.4 TH/MM3 (1.0-4.8); MEAN CELL VOLUME 85.5 FL (80.0-100.0); MEAN CORPUSCULAR HEMOGLOBIN 28.5 PG (27.0-34.0); MEAN CORPUSCULAR HGB CONC 33.3 % (32.0-36.0); MEAN PLATELET VOLUME 7.4 FL (7.0-11.0); MONO % 4.6 % (0.0-8.0); MONOCYTE # 0.4 TH/MM3 (0-0.9); NEUT % 77.9 % (16.0-70.0); PLATELET COUNT 493 TH/MM3 (150-450); RED BLOOD COUNT 3.41 MIL/MM3 (4.00-5.30); RED CELL DISTRIBUTION WIDTH 13.9 % (11.6-17.2); WHITE BLOOD COUNT 8.4 TH/MM3 (4.0-11.0)
[2018-02-24 07:57] VITALS: BP 110/54; PULSE 80; RESP 18; TEMP 98.2; O2SAT 98
[2018-02-24 08:10] LABS: BLOOD UREA NITROGEN 6 MG/DL (7-18); CREATININE 0.56 MG/DL (0.50-1.00); GLOMERULAR FILTRATION RATE 150 ML/MIN (>89); GLUCOSE,RANDOM 68 MG/DL (74-106)
[2018-02-24 08:11] LABS: ALBUMIN 2.9 GM/DL (3.4-5.0); ALKALINE PHOSPHATASE 250 U/L (45-117); ALT (GPT) 227 U/L (10-53); AST (GOT) 93 U/L (15-37); BICARBONATE 23.4 MEQ/L (21.0-32.0); CALCIUM 8.1 MG/DL (8.5-10.1); CHLORIDE 108 MEQ/L (98-107); SODIUM (NA) 140 MEQ/L (136-145); TOTAL BILIRUBIN ADULT 1.7 MG/DL (0.2-1.0); TOTAL PROTEIN 6.3 GM/DL (6.4-8.2)
--- NOTE | 2018-02-24 09:01 | HHI.PR ---
Subjective Remarks Follow-up cholecystitis/choledocholithiasis? February 23, 2018-patient seen and examined, continued to complain of abdominal pain with radiation to her back. Denies any nausea vomiting. States, she was previously seen at [facility] and evaluated by general surgery and given follow-up appointment however she could not get booked for surgery. States the pain got worse and decided to come to the hospital yesterday. Patient denies any history of alcohol abuse only states social and drinks every other week February 24, 2018-patient seen and examined, patient now reports pain to left lower quadrant. Denies any nausea or emesis. MRCP positive for common bile duct stone. Currently n.p.o. Objective Vitals Vital Signs Date Time Temp Pulse Resp B/P (MAP) Pulse Ox O2 Delivery O2 Flow Rate FiO2 02/24/18 07:57 98.2 80 18 110/54 (72) 98 02/24/18 03:39 98.5 85 16 104/53 (70) 95 02/23/18 23:35 98.7 77 16 116/59 (78) 96 02/23/18 19:31 99.0 63 16 141/72 (95) 98 02/23/18 17:06 98.6 61 16 148/74 (98) 97 I/O 02/23/18 02/23/18 02/23/18 02/24/18 02/24/18 02/24/18 07:00 15:00 23:00 07:00 15:00 23:00 Intake Total 1100 ml 600 ml 50 ml Balance 1100 ml 600 ml 50 ml Intake Oral 600 ml 50 ml IV Total 1100 ml Result Diagram: 02/24/18 0625 02/24/18 0625 Imaging Last Impressions Cholangiopancreatography MRI 02/23/18 0000 Signed Impressions: Service Date/Time: Friday, February 23, 2018 11:07 - CONCLUSION: The examination demonstrates a distended gallbladder with numerous punctate stones within the gallbladder. The gallbladder wall appears mildly thickened. There is a punctate filling defects seen in the distal duct on a single projection on the MRCP T2 images. This may represent a 1 mm stone in the distal duct. The duct is at the upper limits of normal in size measuring approximate 6 mm. There is a large cystic structure arising in the right adnexa which is only partially visualized. Presumably, this is ovarian in origin it measures approximately 11.0 x 6.6 cm. Pelvic ultrasound would be of benefit for further assessment. Quentin Simpson MD Gall Bladder Ultrasound 02/22/18 0000 Signed Impressions: Service Date/Time: Thursday, February 22, 2018 23:04 - CONCLUSION: 1. Multiple gallstones with gallbladder sludge. No acute findings. Bharathi Gerber MD Objective Remarks GENERAL: NAD SKIN: Warm and dry. HEAD: Normocephalic. EYES: No scleral icterus. No injection or drainage. NECK: Supple, trachea midline. No JVD or lymphadenopathy. CARDIOVASCULAR: Regular rate and rhythm without murmurs, gallops, or rubs. RESPIRATORY: Breath sounds equal bilaterally. No accessory muscle use. GASTROINTESTINAL: Abdomen soft, mildly tender, nondistended. +BS MUSCULOSKELETAL: No cyanosis, or edema. BACK: Nontender without obvious deformity. No CVA tenderness. A/P Problem List: (1) Cholelithiasis ICD Code: K80.20 - Calculus of gallbladder without cholecystitis without obstruction (2) Cholecystitis ICD Code: K81.9 - Cholecystitis, unspecified Status: Acute (3) Choledocholithiasis ICD Code: K80.50 - Calculus of bile duct without cholangitis or cholecystitis without obstruction Assessment and Plan 32-year-old female 1. Abdominal pain/biliary colic/gallstones/choledocholithiasis Gallbladder ultrasound multiple gallstones and gallbladder sludge MRCP feb 23 2018 with evidence of common bile duct stone Appreciate input from GI and plan for ERCP with possible stent placement today February 24, 2018 Appreciate input from neurosurgery Continue with Zosyn Hepatitis profile negative Keep n.p.o. and continue morphine for pain Monitor bilirubin level Transaminitis Likely from the above LFTs trending down, continue to monitor level Anemia likely of iron deficiency Check iron study and treat accordingly Rule out fibroid Check pelvic ultrasound DVT prophylaxis: Ambulatory, low risk for VTE Aneesh Metcalf MD February 24, 2018 09:01
[2018-02-24] MEDS: DOCUSATE SODIUM 50 MG/SENNA 8.6 MG TAB PO SCH ×2 (09:27→20:03)
[2018-02-24] MEDS: SODIUM CHLORIDE 0.9% FLUSH 10 ML FLUSH IV FLUSH SCH ×2 (09:27→20:04)
[2018-02-24 11:13] LABS: % SATURATION IRON PROFILE 16.7 % (20-50); FERRITIN 15 NG/ML (8-252); IRON (FE) 52 MCG/DL (50-170); TOTAL IRON BINDING CAPACITY 312 MCG/DL (250-450)
[2018-02-24 11:43] VITALS: BP 111/58; PULSE 81; RESP 18; TEMP 98.6; O2SAT 100
[2018-02-24 11:45] VITALS: BP 121/64; PULSE 65; RESP 18; TEMP 98.5; O2SAT 99
[2018-02-24] MEDS ORDERED: SODIUM CHLORIDE 0.9% 10 ML VIAL IV ONE (12:00)
[2018-02-24] MEDS ORDERED: PROPOFOL 200 MG/20 ML AMP IV ONE (12:00)
[2018-02-24] MEDS ORDERED: DEXAMETHASONE SOD PHOS 4 MG/ML VIAL IV ONE (12:00)
[2018-02-24] MEDS ORDERED: ROCURONIUM INJ 50 MG/5 ML SYRINGE IV PUSH ONE (12:00)
[2018-02-24] MEDS ORDERED: ESMOLOL HCL 100 MG/10 ML VIAL IV ONE (12:00)
[2018-02-24] MEDS ORDERED: LIDOCAINE HCL 1% PF 5 ML SYRINGE OTHER ONE (12:00)
[2018-02-24] MEDS ORDERED: ONDANSETRON HCL 4 MG/2 ML VIAL IV ONE (12:00)
--- NOTE | 2018-02-24 12:05 | RADRPT ---
EXAM DATE/TIME: 02/24/2018 10:01 [facility] COMPARISON: No previous studies available for comparison. INDICATIONS : Pelvic pain. MEDICAL HISTORY : Gallstones. SURGICAL HISTORY : section. ENCOUNTER: Initial ACUITY: 1 day PAIN SCORE: 3/10 LOCATION: Bilateral pelvis MEASUREMENTS: UTERUS: 11.1 x 5.3 x 5.8 cm ENDOMETRIAL STRIPE: 7 mm RIGHT OVARY: 6.0 x 7.7 x 5.7 cm cm LEFT OVARY: 3.6 x 2.5 x 2.6 cm FINDINGS: UTERUS: There are 2 heterogeneous mixed echogenicity solid myometrial masses. The largest is near the fundus measuring 4.0 x 4.2 x 3.6 cm. Second measures 1.6 x 1.0 x 1.5 cm in the body. RIGHT OVARY: Large cyst in the right ovary with inferior septations measuring 11.7 x 7.1 x 6.0 cm. Right ovary oth erwise appears unremarkable with blood flow demonstrated in the ovarian tissue. LEFT OVARY: 2.9 x 2.4 x 1.8 cm simple cyst in the left ovary which otherwise appears unremarkable. MISCELLANEOUS: Small amount of free fluid in the pelvis. CONCLUSION: 1. Two heterogeneous myometrial masses likely reflecting uterine leiomyomas with the largest measurin g 4.2 cm near the fundus. 2. Minimally complex large right ovarian cyst measuring up to 11.7 cm. Please see recommendation donna w. 3. Simple 2.9 cm left ovarian cyst which does not require followup. 4. Small amount of free fluid in the pelvis. Pelvic ultrasound follow-up in 6-12 weeks is recommended for hemorrhagic adnexal cysts 5-7 cm in wome n of reproductive age. If unchanged or unresolved, follow with contrast-enhanced pelvic MRI or ultra sound. Unless classic endometrioma or dermoid is then confirmed on contrast-enhanced pelvic MRI or u ltrasound follow-up, consider surgical consultation. Reference: Simran See MD, et al. Manageme nt of Asymptomatic Ovarian and Other Adnexal Cysts Imaged at Ultrasound: Society of Radiologists in U ltrasound Consensus Conference Statement. Radiology 2010; 256:[id number]. Jamey Thomson MD on February 24, 2018 at 11:51 Board Certified Radiologist. This report was verified electronically.
--- NOTE | 2018-02-24 12:46 | HHI.PR ---
Subjective Subjective Notes Abdominal pain improving. For ERCP this afternoon. Objective Vitals/I&O Vital Signs Date Time Temp Pulse Resp B/P (MAP) Pulse Ox O2 Delivery O2 Flow Rate FiO2 02/24/18 11:43 98.6 81 18 111/58 (75) 100 02/23/18 01:02 Room Air Labs Laboratory Tests Test 02/24/18 06:25 White Blood Count 8.4 Red Blood Count 3.41 Hemoglobin 9.7 Hematocrit 29.2 Mean Corpuscular Volume 85.5 Mean Corpuscular Hemoglobin 28.5 Mean Corpuscular Hemoglobin Concent 33.3 Red Cell Distribution Width 13.9 Platelet Count 493 Mean Platelet Volume 7.4 Neutrophils (%) (Auto) 77.9 Lymphocytes (%) (Auto) 17.0 Monocytes (%) (Auto) 4.6 Eosinophils (%) (Auto) 0.2 Basophils (%) (Auto) 0.3 Neutrophils # (Auto) 6.6 Lymphocytes # (Auto) 1.4 Monocytes # (Auto) 0.4 Eosinophils # (Auto) 0.0 Basophils # (Auto) 0.0 CBC Comment DIFF FINAL Differential Comment Blood Urea Nitrogen 6 Creatinine 0.56 Random Glucose 68 Total Protein 6.3 Albumin 2.9 Calcium Level 8.1 Alkaline Phosphatase 250 Aspartate Amino Transf (AST/SGOT) 93 Alanine Aminotransferase (ALT/SGPT) 227 Total Bilirubin 1.7 Sodium Level 140 Potassium Level 3.6 Chloride Level 108 Carbon Dioxide Level 23.4 Anion Gap 9 Estimat Glomerular Filtration Rate 150 Iron Level 52 Total Iron Binding Capacity 312 Percent Iron Saturation 16.7 Ferritin 15 Direct Bilirubin 1.0 Radiology Last Impressions Gall Bladder Ultrasound 02/22/18 0000 Signed Impressions: Service Date/Time: Thursday, February 22, 2018 23:04 - CONCLUSION: 1. Multiple gallstones with gallbladder sludge. No acute findings. Bharathi Gerber MD Narrative Exam No distess Abd: moderate epigastric ttp A/P Assessment and Plan 32 yo F with choledocholithiasis. She had no obvious gallbladder inflammation on u/s and normal WBC, so likely not acute cholecystitis. For ERCP today. Discussed with patient in detail. If improving after ERCP she can be discharged home and will f/u with me in two weeks for outpatient surgery planning. Please call if surgery needed back on the case. Deshawn Ferrell MD February 24, 2018 12:46
[2018-02-24] MEDS ORDERED: INDOMETHACIN 50 MG SUPP RECTAL ONE (16:31)
[2018-02-24] MEDS ORDERED: SUGAMMADEX SODIUM 200 MG/2 ML VIAL IV PUSH ONE (16:57)
[2018-02-24 18:00] VITALS: BP 143/69; PULSE 61; RESP 18; TEMP 98.6; O2SAT 99
[2018-02-24] MEDS ORDERED: DO NOT ADM ANY ANTICOAGULANT DRUGS PRN (19:00)
[2018-02-24 20:00] VITALS: BP 139/84; PULSE 72; RESP 18; TEMP 99; O2SAT 99
--- NOTE | 2018-02-24 22:34 | RADRPT ---
EXAM DATE/TIME: 02/24/2018 15:57 [facility] COMPARISON: MRCP W/O CONTRAST, February 23, 2018, 11:07. INDICATIONS : Gallstones. FLUORO TIME: 2.03 minutes IMAGE COUNT: 8 CONTRAST: Instilled by Ordering Physician MEDICAL HISTORY : Smoker. SURGICAL HISTORY : section. ENCOUNTER: Subsequent ACUITY: 3 days PAIN SCORE: Non-responsive. LOCATION: Abdomen. FINDINGS: An ERCP was performed by the ordering physician. The images demonstrate good opacification of the intra-and extra hepatic biliary tree. No definite fi lling defects or other focal abnormalities identified. CONCLUSION: ERCP as above. Adams Arboleda MD on February 24, 2018 at 22:29 Board Certified Radiologist. This report was verified electronically.
[2018-02-25] MEDS: PIPERACIL-TAZO 3.375 GM PREMIX 50 ML IV SCH ×4 (01:02→17:30)
[2018-02-25 03:45] VITALS: BP 137/61; PULSE 59; RESP 18; TEMP 98.3; O2SAT 99
[2018-02-25] MEDS: SODIUM CHLOR 0.9% 1000 ML INJ 1,000 ML IV SCH ×3 (05:17→20:26)
[2018-02-25 08:00] VITALS: BP 134/75; PULSE 64; RESP 16; TEMP 99.4; O2SAT 99
[2018-02-25 08:29] LABS: ALBUMIN 2.9 GM/DL (3.4-5.0); DIRECT BILIRUBIN ADULT 0.6 MG/DL (0.0-0.2); INDIRECT BILIRUBIN 0.5 MG/DL (0.0-0.8); TOTAL BILIRUBIN ADULT 1.1 MG/DL (0.2-1.0); TOTAL PROTEIN 7.3 GM/DL (6.4-8.2)
[2018-02-25] MEDS: DOCUSATE SODIUM 50 MG/SENNA 8.6 MG TAB PO SCH ×2 (08:57→20:22)
--- NOTE | 2018-02-25 09:07 | HHI.PR ---
Subjective Remarks Follow-up abdominal pain. Patient going for cholecystectomy later today. Status post ERCP yesterday. Abdominal pain has improved following the procedure. No chest pain, dyspnea, nausea, vomiting. Objective Vitals Vital Signs Date Time Temp Pulse Resp B/P (MAP) Pulse Ox O2 Delivery O2 Flow Rate FiO2 02/25/18 03:45 98.3 59 18 137/61 (86) 99 02/24/18 20:00 99.0 72 18 139/84 (102) 99 02/24/18 18:45 Room Air 02/24/18 18:00 98.6 61 18 143/69 (93) 99 02/24/18 17:45 97.3 75 18 130/87 (101) 100 Room Air 02/24/18 17:30 94 18 133/82 (99) 99 Room Air 02/24/18 17:14 97.1 94 16 136/89 (105) 99 Room Air 02/24/18 16:16 98.9 86 20 132/82 (99) 100 02/24/18 11:45 98.5 65 18 121/64 (83) 99 02/24/18 11:43 98.6 81 18 111/58 (75) 100 I/O 02/24/18 02/24/18 02/24/18 02/25/18 02/25/18 02/25/18 07:00 15:00 23:00 07:00 15:00 23:00 Intake Total 50 ml 2000 ml 700 ml Output Total 175 ml Balance 50 ml 1825 ml 700 ml Intake Oral 50 ml 600 ml IV Total 1000 ml 100 ml Other 1000 ml Output Urine Total 175 ml # Voids 2 # Bowel Movements 0 Result Diagram: 02/24/18 0625 02/24/18 0625 Imaging Last Impressions Pelvis Ultrasound 02/24/18 0000 Signed Impressions: Service Date/Time: Saturday, February 24, 2018 10:01 - CONCLUSION: 1. Two heterogeneous myometrial masses likely reflecting uterine leiomyomas with the largest measuring 4.2 cm near the fundus. 2. Minimally complex large right ovarian cyst measuring up to 11.7 cm. Please see recommendation below. 3. Simple 2.9 cm left ovarian cyst which does not require followup. 4. Small amount of free fluid in the pelvis. Pelvic ultrasound follow-up in 6-12 weeks is recommended for hemorrhagic adnexal cysts 5-7 cm in women of reproductive age. If unchanged or unresolved, follow with contrast-enhanced pelvic MRI or ultrasound. Unless classic endometrioma or dermoid is then confirmed on contrast-enhanced pelvic MRI or ultrasound follow-up, consider surgical consultation. Reference: Simran See MD GI Procedure 02/24/18 0000 Signed Impressions: Service Date/Time: Saturday, February 24, 2018 15:57 - CONCLUSION: ERCP as above. Adams Arboleda MD Cholangiopancreatography MRI 02/23/18 0000 Signed Impressions: Service Date/Time: Friday, February 23, 2018 11:07 - CONCLUSION: The examination demonstrates a distended gallbladder with numerous punctate stones within the gallbladder. The gallbladder wall appears mildly thickened. There is a punctate filling defects seen in the distal duct on a single projection on the MRCP T2 images. This may represent a 1 mm stone in the distal duct. The duct is at the upper limits of normal in size measuring approximate 6 mm. There is a large cystic structure arising in the right adnexa which is only partially visualized. Presumably, this is ovarian in origin it measures approximately 11.0 x 6.6 cm. Pelvic ultrasound would be of benefit for further assessment. Quentin Simpson MD Gall Bladder Ultrasound 02/22/18 0000 Signed Impressions: Service Date/Time: Thursday, February 22, 2018 23:04 - CONCLUSION: 1. Multiple gallstones with gallbladder sludge. No acute findings. Bharathi Gerber MD Objective Remarks Examined in the presence of the nurse. General: No acute distress. Heart: Regular rate and rhythm. No murmur. Lungs: Clear to auscultation bilaterally. No wheezes, rales, or rhonchi. Breathing is nonlabored. Abdomen: Soft, mild tenderness in the right upper quadrant without rebound or guarding, nondistended. Extremities: No lower extremity edema. Psych: Alert and oriented. Neuro: Normal speech. No focal deficits noted. Procedures 02/24/18 ERCP Urinary Catheter: No Vascular Central Line Catheter: No A/P Problem List: (1) Cholelithiasis ICD Code: K80.20 - Calculus of gallbladder without cholecystitis without obstruction (2) Cholecystitis ICD Code: K81.9 - Cholecystitis, unspecified Status: Acute (3) Choledocholithiasis ICD Code: K80.50 - Calculus of bile duct without cholangitis or cholecystitis without obstruction Assessment and Plan 1. Abdominal pain, choledocholithiasis: Status post MRCP, ERCP. Appreciate general surgery and gastroenterology recommendations. Going for cholecystectomy today. Continue Zosyn. Monitor labs. 2. Transaminitis: LFTs are trending down. Secondary to above. 3. Ovarian cyst, uterine fibroids: Patient will need follow-up imaging. Consult gynecology. Discussed at length with patient the importance of follow- up. 4. Anemia, likely iron deficiency: H&H decreased slightly. Monitor labs. 5. DVT prophylaxis: Ambulatory. No chemical prophylaxis in anticipation of surgery. Aldo Mcgowan MD February 25, 2018 09:07
[2018-02-25 12:00] VITALS: BP 133/75; PULSE 67; RESP 16; TEMP 98.3; O2SAT 100
[2018-02-25] MEDS ORDERED: NEOSTIGMINE 5 MG/5 ML SYRINGE IV PUSH ONE (12:00)
[2018-02-25] MEDS ORDERED: GLYCOPYRROLATE 1 MG/5 ML SYRINGE IV PUSH ONE (12:00)
[2018-02-25] MEDS: SODIUM CHLORIDE 0.9% FLUSH 10 ML FLUSH IV FLUSH SCH ×2 (12:00→20:22)
[2018-02-25] MEDS ORDERED: LIDOCAINE HCL 1% PF 5 ML SYRINGE OTHER ONE (12:00)
[2018-02-25] MEDS ORDERED: ONDANSETRON HCL 4 MG/2 ML VIAL IV ONE (12:00)
[2018-02-25] MEDS ORDERED: DEXAMETHASONE SOD PHOS 4 MG/ML VIAL IV ONE (12:00)
[2018-02-25] MEDS ORDERED: PROPOFOL 200 MG/20 ML AMP IV ONE (12:00)
[2018-02-25] MEDS ORDERED: ROCURONIUM INJ 50 MG/5 ML SYRINGE IV PUSH ONE (12:00)
--- NOTE | 2018-02-25 12:09 | PD.CONS ---
HPI Chief Complaint Ovarian cyst Date Seen: February 25, 2018 Travel History International Travel<30 Days: No Contact w/Intl Traveler<30Days: No Known Affected Area: No History of Present Illness HPI The patient is a pleasant 32 year old female admitted following RUQ abdominal pain and found to have choledocholithiasis. ROVING SIZER has been consulted as the patient was found to have a large right ovarian cyst on MRCP. The patient reports she was first told she had this ovarian cyst about 2 months ago while hospitalized at [facility]. She reports she thinks she may have had some lower abdominal/pelvic fullness however not severe enough to interfere with her work or caused her to have any pain or discomfort. She denies any abnormal vaginal discharge or bleeding. She remains sexually active. Denies dyspareunia. She denies any known family history of uterine or ovarian pathology. The patient is a and reports she previously saw Dr. Brock for her prior pregnancies. Para: 2 : 2 History Past Medical History Narrative Medical Biliary colic Obstetric History Obstetric History Past Surgical History Narrative Surgical 2 Family History Narrative Family History Patient reports no known pertinent family history Social History Narrative Social History Smokes approximately 2-3 cigarettes daily. Occasional alcohol. Denies illicit drugs. Allergies-Medications (Allergen,Severity, Reaction): Coded Allergies: No Known Allergies (Verified Adverse Reaction, Unknown, 02/22/18) Home Meds Discontinued Scripts Ibuprofen (Ibuprofen) 800 Mg Tab, 800 MG PO Q8H Y for Pain/Inflammation, #21 TAB 0 Refills Prov:Soniya Mclain MD 06/10/17 Cyclobenzaprine (Flexeril) 5 Mg Tab, 5 MG PO TID for Muscle Spasm, #15 TAB 0 Refills Prov:Soniya Mclain MD 06/10/17 Review of Systems Except as stated in HPI: all other systems reviewed are Neg Physical Exam Vital Signs Date Time Temp Pulse Resp B/P (MAP) Pulse Ox O2 Delivery O2 Flow Rate FiO2 02/25/18 08:00 99.4 64 16 134/75 (94) 99 02/25/18 03:45 98.3 59 18 137/61 (86) 99 02/24/18 20:00 99.0 72 18 139/84 (102) 99 02/24/18 18:45 Room Air 02/24/18 18:00 98.6 61 18 143/69 (93) 99 02/24/18 17:45 97.3 75 18 130/87 (101) 100 Room Air 02/24/18 17:30 94 18 133/82 (99) 99 Room Air 02/24/18 17:14 97.1 94 16 136/89 (105) 99 Room Air 02/24/18 16:16 98.9 86 20 132/82 (99) 100 Narrative GENERAL: Well-nourished, well-developed patient. SKIN: Warm and dry. HEAD: Normocephalic and atraumatic. EYES: No scleral icterus. No injection or drainage. ENT: No nasal drainage noted. Mucous membranes pink. Airway patent. NECK: Supple, trachea midline. No JVD. CARDIOVASCULAR: Regular rate and rhythm without murmurs, gallops, or rubs. RESPIRATORY: Breath sounds equal bilaterally. No accessory muscle use. ABDOMEN/GI: Abdomen soft, non-tender, no rebound, no guarding GENITOURINARY (performed by Dr. Macario with female student present in room): External Genitalia: intact and normal in appearance Cervix: [-] EXTREMITIES: No cyanosis or edema. BACK: Nontender without obvious deformity. NEUROLOGICAL: Awake and alert. Motor and sensory grossly within normal limits. Normal speech. Data Data Vital Signs Reviewed: Yes Orders Orders Lactated Ringer's 1000 Ml Inj (Lr 1000 M (02/24/18 16:00) Sodium Chlorid 0.9% 500 Ml Inj (Ns 500 M (02/24/18 16:00) Metoprolol Tartrate (Lopressor) (02/24/18 16:00) Povidone Iod 5% Antisepsis Kit (Betadine (02/24/18 16:00) Chlorhexidine 2% Cloth (Chlorhexidine 2% (02/24/18 16:00) Gi Lab Preop/Recover-Statistic (02/24/18 ) Indomethacin Supp (Indocin Supp) (02/24/18 16:31) Sugammadex Inj (Bridion Inj) (02/24/18 16:57) Consent (02/24/18 ) Diet Regular Basic (02/24/18 Dinner) Diet Npo (02/25/18 Breakfast) Hepatic Functional Panel (02/25/18 06:00) Lipase (02/25/18 06:00) Consent (02/24/18 18:39) Class Iv Pacu Ea 30 Min (02/24/18 ) General/Pacu (02/24/18 ) Nursing Information ([facility] Nursing Inform (02/24/18 19:00) Gi Lab - Ercp (02/24/18 ) Sleeve, Knee Sequential Lai Pr (02/24/18 21:00) Diet Progression Instructions (02/24/18 21:00) ^ Obtain (02/24/18 21:00) ^ Lab Studies (02/24/18 21:00) ^ Write Order (02/24/18 21:00) Scd / Lai / Foot Pump JOSE.QSHIFT (02/24/18 21:00) ^ Iv Setup For Or (02/24/18 21:00) IV (02/24/18 21:00) ^ Iv Piggyback For Or (02/24/18 21:00) Bedside Glucose .Prior to OR (02/24/18 21:00) ^ Medication Indications (02/24/18 21:00) Lactated Ringer's 1000 Ml Inj (Lr 1000 M (02/24/18 22:15) Sodium Chlorid 0.9% 500 Ml Inj (Ns 500 M (02/24/18 22:15) Povidone Iod 5% Antisepsis Kit (Betadine (02/24/18 22:15) Chlorhexidine 2% Cloth (Chlorhexidine 2% (02/24/18 22:15) Physician Name Changes (02/25/18 ) Consult Gynecology (02/25/18 ) ^ Other Nursing Orders (02/25/18 10:07) (Hub Use Only)Inp Phy Cons/Ref (02/25/18 ) Labs Laboratory Tests Test 02/25/18 07:16 Total Bilirubin 1.1 Direct Bilirubin 0.6 Indirect Bilirubin 0.5 Aspartate Amino Transf (AST/SGOT) 39 Alanine Aminotransferase (ALT/SGPT) 173 Alkaline Phosphatase 224 Total Protein 7.3 Albumin 2.9 Lipase 610 MDM Medical Record Reviewed: Yes Plan 32-year-old female found to have a large right ovarian cyst minimally complex measuring 11.7 x 7.1 x 6.0. Case was discussed with Dr. Macario with ROVING SIZER wardrobe consultant physician as well as the office of Dr. Cass Young. The patient is currently asymptomatic apart from mild lower abdominal fullness she describes similar to sensation of constipation. Discussed with the patient the risk of ovarian torsion and warning signs and symptoms that would warrant immediate evaluation by a physician or in the ED. Plan will be for the patient to establish with Dr. Young, ROVING SIZER/Oncology as an outpatient for further management. Patient was informed of follow up plan as an outpatient. Seen and discussed with Dr. Macario. Admitting diagnosis: Cholecystitis Alen Hartley MD R2 February 25, 2018 12:09
--- NOTE | 2018-02-25 12:37 | HHI.PR ---
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 Button Grader consulted for 11.7cm R minimally complex R ovarian cyst with internal septations that was discovered on imaging for her gallbladder. She has been asymptomatic and without any pelvic pain; she reports a sensation of some "mild fullness." Consultation called in close proximity to patient undergoing scheduled cholecystectomy. Pelvic examination revealed a normal appearing cervix, rugae, and physiologic discharge. No cervical or vaginal masses were noted. SVE with uterus approximately 10 week size, no uterine or adnexal tenderness, no discrete adnexal mass noted but patient with limited tolerance to examination. Patient declined rectovaginal examination. Discussed with high rigger oncology PA and subsequently Dr. Young who will schedule office evaluation and followup if no emergent indication at this time. Discussed with the patient who is in agreement with this plan. Objective Vital Signs Date Time Temp Pulse Resp B/P (MAP) Pulse Ox O2 Delivery O2 Flow Rate FiO2 02/25/18 12:00 98.3 67 16 133/75 (94) 100 02/25/18 08:00 99.4 64 16 134/75 (94) 99 02/25/18 03:45 98.3 59 18 137/61 (86) 99 02/24/18 20:00 99.0 72 18 139/84 (102) 99 02/24/18 18:45 Room Air 02/24/18 18:00 98.6 61 18 143/69 (93) 99 02/24/18 17:45 97.3 75 18 130/87 (101) 100 Room Air 02/24/18 17:30 94 18 133/82 (99) 99 Room Air 02/24/18 17:14 97.1 94 16 136/89 (105) 99 Room Air 02/24/18 16:16 98.9 86 20 132/82 (99) 100 I/O 02/24/18 02/24/18 02/24/18 02/25/18 02/25/18 02/25/18 07:00 15:00 23:00 07:00 15:00 23:00 Intake Total 50 ml 2000 ml 700 ml Output Total 175 ml Balance 50 ml 1825 ml 700 ml Intake Oral 50 ml 600 ml IV Total 1000 ml 100 ml Other 1000 ml Output Urine Total 175 ml # Voids 2 # Bowel Movements 0 Result Diagram: 02/24/1825 02/24/18624 Peri Macario MD February 25, 2018 12:37
--- NOTE | 2018-02-25 14:04 | HHI.GIFU ---
Subjective Remarks Pt resting in bed Currently NPO for cholecystectomy today Denies any abdominal pain, nausea, vomiting (Brooklyn Busby) Objective Vitals I&O Vital Signs Date Time Temp Pulse Resp B/P (MAP) Pulse Ox O2 Delivery O2 Flow Rate FiO2 02/25/18 12:00 98.3 67 16 133/75 (94) 100 02/25/18 08:00 99.4 64 16 134/75 (94) 99 02/25/18 03:45 98.3 59 18 137/61 (86) 99 02/24/18 20:00 99.0 72 18 139/84 (102) 99 02/24/18 18:45 Room Air 02/24/18 18:00 98.6 61 18 143/69 (93) 99 02/24/18 17:45 97.3 75 18 130/87 (101) 100 Room Air 02/24/18 17:30 94 18 133/82 (99) 99 Room Air 02/24/18 17:14 97.1 94 16 136/89 (105) 99 Room Air 02/24/18 16:16 98.9 86 20 132/82 (99) 100 I/O 02/24/18 02/24/18 02/24/18 02/25/18 02/25/18 02/25/18 07:00 15:00 23:00 07:00 15:00 23:00 Intake Total 50 ml 2000 ml 700 ml Output Total 175 ml Balance 50 ml 1825 ml 700 ml Intake Oral 50 ml 600 ml IV Total 1000 ml 100 ml Other 1000 ml Output Urine Total 175 ml # Voids 2 # Bowel Movements 0 Laboratory Laboratory Tests Test 02/25/18 07:16 Total Bilirubin 1.1 Direct Bilirubin 0.6 Indirect Bilirubin 0.5 Aspartate Amino Transf (AST/SGOT) 39 Alanine Aminotransferase (ALT/SGPT) 173 Alkaline Phosphatase 224 Total Protein 7.3 Albumin 2.9 Lipase 610 Imaging Last Impressions Pelvis Ultrasound 02/24/18 0000 Signed Impressions: Service Date/Time: Saturday, February 24, 2018 10:01 - CONCLUSION: 1. Two heterogeneous myometrial masses likely reflecting uterine leiomyomas with the largest measuring 4.2 cm near the fundus. 2. Minimally complex large right ovarian cyst measuring up to 11.7 cm. Please see recommendation below. 3. Simple 2.9 cm left ovarian cyst which does not require followup. 4. Small amount of free fluid in the pelvis. Pelvic ultrasound follow-up in 6-12 weeks is recommended for hemorrhagic adnexal cysts 5-7 cm in women of reproductive age. If unchanged or unresolved, follow with contrast-enhanced pelvic MRI or ultrasound. Unless classic endometrioma or dermoid is then confirmed on contrast-enhanced pelvic MRI or ultrasound follow-up, consider surgical consultation. Reference: Simran See MD GI Procedure 02/24/18 0000 Signed Impressions: Service Date/Time: Saturday, February 24, 2018 15:57 - CONCLUSION: ERCP as above. Adams Arboleda MD Cholangiopancreatography MRI 02/23/18 0000 Signed Impressions: Service Date/Time: Friday, February 23, 2018 11:07 - CONCLUSION: The examination demonstrates a distended gallbladder with numerous punctate stones within the gallbladder. The gallbladder wall appears mildly thickened. There is a punctate filling defects seen in the distal duct on a single projection on the MRCP T2 images. This may represent a 1 mm stone in the distal duct. The duct is at the upper limits of normal in size measuring approximate 6 mm. There is a large cystic structure arising in the right adnexa which is only partially visualized. Presumably, this is ovarian in origin it measures approximately 11.0 x 6.6 cm. Pelvic ultrasound would be of benefit for further assessment. Quentin Simpson MD Gall Bladder Ultrasound 02/22/18 0000 Signed Impressions: Service Date/Time: Thursday, February 22, 2018 23:04 - CONCLUSION: 1. Multiple gallstones with gallbladder sludge. No acute findings. Bharathi Gerber MD Physical Exam HEENT: Normocephalic; atraumatic CHEST: Even/unlabored CARDIAC: RRR ABDOMEN: Soft, nondistended, nontender; bowel sounds active EXTREMITIES: No clubbing, cyanosis, or edema. SKIN: Normal; no rash; no jaundice. POST DOCTORAL FELLOW: No focal deficits; alert and oriented times three. (Brooklyn Busby) Assessment and Plan Plan ASSESSMENT - Abd pain, n/v - suspect choledocholithiasis. MRCP shows poss CBD stone, CBD 6mm, filling defect, gallstones, GB distended. US showed gallstones and sludge. GS following. - elevated LFTs - obstructive pattern. hep panel neg. denies heavy drinking (02/25) S/P ERCP with sphincterotomy and balloon sweep yesterday. LFTs trending down today. Pt currently NPO for cholecystectomy today. PLAN - GS following - GI will sign off, please reconsult as needed - Have pt follow up with GI after discharge Pt has been seen and examined by myself and Dr. Melchor and this note is written on her behalf (Brooklyn Busby) Physician Comments seen, examined agree with above (Dafne Melchor MD) Brooklyn Busby February 25, 2018 14:04 Dafne Melchor MD February 25, 2018 16:46
[2018-02-25 16:00] VITALS: BP 126/72; PULSE 52; RESP 16; TEMP 98.4; O2SAT 99
[2018-02-25] MEDS ORDERED: BUPIVACAINE/EPINEPHRINE 0.5% PF 10 ML VIAL ONE (16:16)
[2018-02-25] MEDS ORDERED: MIDAZOLAM HCL 2 MG/2 ML VIAL ONE (16:22)
[2018-02-25] MEDS ORDERED: MORPHINE SULFATE 4 MG/ML INJ IV PUSH PRN (17:45)
[2018-02-25] MEDS ORDERED: SODIUM CHLORIDE 0.9% FLUSH 10 ML FLUSH IV FLUSH PRN (17:45)
[2018-02-25] MEDS ORDERED: ACETAMINOPHEN/HYDROcodone 325 MG/5 MG TAB PO PRN (17:45)
[2018-02-25] MEDS ORDERED: Post-op Orders (for Pharmacy) XX ONE (17:45)
[2018-02-25] MEDS ORDERED: *morphine SULFATE 4 MG/ML PERIprocedure ONLY ONE ×2 (18:02→18:14)
[2018-02-25 20:00] VITALS: BP 132/73; PULSE 72; RESP 17; TEMP 98.4; O2SAT 97
[2018-02-25] MEDS ORDERED: SODIUM CHLORIDE 0.9% FLUSH 10 ML FLUSH IV FLUSH SCH (21:00)
[2018-02-25] MEDS ORDERED: DO NOT ADM ANY ANTICOAGULANT DRUGS PRN (22:00)
[2018-02-26] VITALS: BP 113/55; PULSE 60; RESP 18; TEMP 98.5; O2SAT 97
[2018-02-26] MEDS: PIPERACIL-TAZO 3.375 GM PREMIX 50 ML IV SCH ×3 (00:15→13:09)
[2018-02-26] MEDS: SODIUM CHLOR 0.9% 1000 ML INJ 1,000 ML IV SCH (01:59)
[2018-02-26 04:00] VITALS: BP 113/71; PULSE 59; RESP 18; TEMP 98.4; O2SAT 97
[2018-02-26] MEDS: ACETAMINOPHEN/HYDROcodone 325 MG/5 MG TAB PO PRN ×3 (05:15→17:06)
[2018-02-26 08:00] VITALS: BP 125/63; PULSE 66; RESP 16; TEMP 98.7; O2SAT 96
[2018-02-26] MEDS: SODIUM CHLORIDE 0.9% FLUSH 10 ML FLUSH IV FLUSH SCH (08:29)
[2018-02-26] MEDS: DOCUSATE SODIUM 50 MG/SENNA 8.6 MG TAB PO SCH (08:29)
--- NOTE | 2018-02-26 09:55 | HHI.PR ---
DIGITAL SERVICE ENGINEER Note Note Patient seen and examined this morning. No acute events overnight. Patient states pain is well controlled and she feels better. Patient is status post cholecystectomy, postop day 1. Patient is stable from DIGITAL SERVICE ENGINEER standpoint and she will be following up with Dr. Young as an outpatient. Seen discussed with Dr. Macario. Gonzalo Pierre MD, R1 February 26, 2018 09:55
--- NOTE | 2018-02-26 11:20 | HHI.PR ---
Subjective Remarks Patient reports doing well. Patient has ambulated in the halls without difficult, reports pain tolerable, asking for diet to be increased Objective Vitals Vital Signs Date Time Temp Pulse Resp B/P (MAP) Pulse Ox O2 Delivery O2 Flow Rate FiO2 02/26/18 08:00 98.7 66 16 125/63 (83) 96 02/26/18 04:00 98.4 59 18 113/71 (85) 97 02/26/18 00:00 98.5 60 18 113/55 (74) 97 02/25/18 20:00 98.4 72 17 132/73 (92) 97 02/25/18 18:20 72 16 132/79 (96) 99 Room Air 02/25/18 18:00 69 16 142/74 (96) 97 Room Air 02/25/18 17:43 98.1 107 16 125/72 (89) 99 Room Air 02/25/18 16:00 98.4 52 16 126/72 (90) 99 02/25/18 12:00 98.3 67 16 133/75 (94) 100 I/O 02/25/18 02/25/18 02/25/18 02/26/18 02/26/18 02/26/18 07:00 15:00 23:00 07:00 15:00 23:00 Intake Total 700 ml 650 ml 700 ml Output Total 50 ml Balance 700 ml 600 ml 700 ml Intake Oral 600 ml 600 ml IV Total 100 ml 100 ml Other 650 ml Estimated Blood Loss 50 ml # Voids 2 1 3 # Bowel Movements 0 Result Diagram: 02/24/18 0625 02/24/18 0625 Other Results Laboratory Tests Test 02/24/18 06:25 02/25/18 07:16 02/26/18 04:19 White Blood Count 8.4 TH/MM3 Red Blood Count 3.41 MIL/MM3 Hemoglobin 9.7 GM/DL Hematocrit 29.2 % Mean Corpuscular Volume 85.5 FL Mean Corpuscular Hemoglobin 28.5 PG Mean Corpuscular Hemoglobin Concent 33.3 % Red Cell Distribution Width 13.9 % Platelet Count 493 TH/MM3 Mean Platelet Volume 7.4 FL Neutrophils (%) (Auto) 77.9 % Lymphocytes (%) (Auto) 17.0 % Monocytes (%) (Auto) 4.6 % Eosinophils (%) (Auto) 0.2 % Basophils (%) (Auto) 0.3 % Neutrophils # (Auto) 6.6 TH/MM3 Lymphocytes # (Auto) 1.4 TH/MM3 Monocytes # (Auto) 0.4 TH/MM3 Eosinophils # (Auto) 0.0 TH/MM3 Basophils # (Auto) 0.0 TH/MM3 CBC Comment DIFF FINAL Differential Comment Blood Urea Nitrogen 6 MG/DL Creatinine 0.56 MG/DL Random Glucose 68 MG/DL Total Protein 6.3 GM/DL 7.3 GM/DL Albumin 2.9 GM/DL 2.9 GM/DL Calcium Level 8.1 MG/DL Alkaline Phosphatase 250 U/L 224 U/L Aspartate Amino Transf (AST/SGOT) 93 U/L 39 U/L Alanine Aminotransferase (ALT/SGPT) 227 U/L 173 U/L Total Bilirubin 1.7 MG/DL 1.1 MG/DL Sodium Level 140 MEQ/L Potassium Level 3.6 MEQ/L Chloride Level 108 MEQ/L Carbon Dioxide Level 23.4 MEQ/L Anion Gap 9 MEQ/L Estimat Glomerular Filtration Rate 150 ML/MIN Iron Level 52 MCG/DL Total Iron Binding Capacity 312 MCG/DL Percent Iron Saturation 16.7 % Ferritin 15 NG/ML Direct Bilirubin 1.0 MG/DL 0.6 MG/DL Indirect Bilirubin 0.5 MG/DL Lipase 610 U/L 134 U/L Imaging Last Impressions Pelvis Ultrasound 02/24/18 0000 Signed Impressions: Service Date/Time: Saturday, February 24, 2018 10:01 - CONCLUSION: 1. Two heterogeneous myometrial masses likely reflecting uterine leiomyomas with the largest measuring 4.2 cm near the fundus. 2. Minimally complex large right ovarian cyst measuring up to 11.7 cm. Please see recommendation below. 3. Simple 2.9 cm left ovarian cyst which does not require followup. 4. Small amount of free fluid in the pelvis. Pelvic ultrasound follow-up in 6-12 weeks is recommended for hemorrhagic adnexal cysts 5-7 cm in women of reproductive age. If unchanged or unresolved, follow with contrast-enhanced pelvic MRI or ultrasound. Unless classic endometrioma or dermoid is then confirmed on contrast-enhanced pelvic MRI or ultrasound follow-up, consider surgical consultation. Reference: Simran See MD GI Procedure 02/24/18 0000 Signed Impressions: Service Date/Time: Saturday, February 24, 2018 15:57 - CONCLUSION: ERCP as above. Adams Arboleda MD Cholangiopancreatography MRI 02/23/18 0000 Signed Impressions: Service Date/Time: Friday, February 23, 2018 11:07 - CONCLUSION: The examination demonstrates a distended gallbladder with numerous punctate stones within the gallbladder. The gallbladder wall appears mildly thickened. There is a punctate filling defects seen in the distal duct on a single projection on the MRCP T2 images. This may represent a 1 mm stone in the distal duct. The duct is at the upper limits of normal in size measuring approximate 6 mm. There is a large cystic structure arising in the right adnexa which is only partially visualized. Presumably, this is ovarian in origin it measures approximately 11.0 x 6.6 cm. Pelvic ultrasound would be of benefit for further assessment. Quentin Simpson MD Gall Bladder Ultrasound 02/22/18 0000 Signed Impressions: Service Date/Time: Thursday, February 22, 2018 23:04 - CONCLUSION: 1. Multiple gallstones with gallbladder sludge. No acute findings. Bharathi Gerber MD Objective Remarks GENERAL: This is a well-nourished, well-developed patient, in no apparent distress. CARDIOVASCULAR: Regular rate and rhythm RESPIRATORY: Clear to auscultation. Breath sounds equal bilaterally. GASTROINTESTINAL: Abdomen soft, non-tender, nondistended. Normal active bowel sounds. laparoscopic incisions present with steristrips dry and intact MUSCULOSKELETAL: Extremities without clubbing, cyanosis, or edema. NEURO: Alert & Oriented x4 to person, place, time, situation. Moves all ext x4 Procedures 02/24/18 ERCP 02/[address] Brizuela A/P Problem List: (1) Cholelithiasis ICD Code: K80.20 - Calculus of gallbladder without cholecystitis without obstruction (2) Cholecystitis ICD Code: K81.9 - Cholecystitis, unspecified Status: Acute (3) Choledocholithiasis ICD Code: K80.50 - Calculus of bile duct without cholangitis or cholecystitis without obstruction Assessment and Plan 1. Abdominal pain, choledocholithiasis: Status post MRCP, ERCP. Appreciate general surgery and gastroenterology recommendations. s/p laparoscopic cholecystectomy 02/[address] Brizuela. Continue Zosyn. Patient on clear liquid diet, advance diet per surgery. 2. Transaminitis: LFTs are trending down. Secondary to above. check CMP in AM 3. Ovarian cyst, uterine fibroids: Patient will need follow-up imaging. Consult gynecology, appreciate input. Cleared for DC per TAPE TRANSFERRER. Patient instructed to follow up with Dr. Young outpatient after DC 4. Anemia, likely iron deficiency: H&H decreased slightly. Monitor labs. Recheck CBC in AM 5. DVT prophylaxis: Ambulatory. No chemical prophylaxis in anticipation of surgery. Supervising physician Marybeth Villavicencio February 26, 2018 11:20
[2018-02-26 12:00] VITALS: BP 116/67; PULSE 66; RESP 16; TEMP 98.8; O2SAT 98
[2018-02-26] MEDS ORDERED: NORC5TAB PO (12:57)
--- NOTE | 2018-02-26 13:15 | HHI.DCPOC ---
Discharge Care Plan Diagnosis: (1) Choledocholithiasis (2) Cholelithiasis Goals to Promote Your Health * To prevent worsening of your condition and complications * To maintain your health at the optimal level Directions to Meet Your Goals Take your medications as prescribed Follow your dietary instruction Follow activity as directed Keep your appointments as scheduled Take your immunizations and boosters as scheduled If your symptoms worsen call your PCP, if no PCP go to Urgent Care Center or Emergency Room Smoking is Dangerous to Your Health. Avoid second hand smoke Call the 24-hour hour crisis hotline for domestic abuse at Marybeth Pemberton February 26, 2018 13:15
--- NOTE | 2018-02-26 13:25 | HHI.PR ---
Subjective Subjective Notes Pain well controlled, tolerating clears Objective Vitals/I&O Vital Signs Date Time Temp Pulse Resp B/P (MAP) Pulse Ox O2 Delivery O2 Flow Rate FiO2 02/26/18 12:00 98.8 66 16 116/67 (83) 98 02/25/18 18:20 Room Air Labs Laboratory Tests Test 02/26/18 04:19 Lipase 134 Radiology Last Impressions Gall Bladder Ultrasound 02/22/18 0000 Signed Impressions: Service Date/Time: Thursday, February 22, 2018 23:04 - CONCLUSION: 1. Multiple gallstones with gallbladder sludge. No acute findings. Bharathi Gerber MD Abdomen: Post-op tenderness Extremities: Perfused Wound Wound : Wound Location: Abdomen Appearance: Clean & Dry A/P Assessment and Plan 32yo F cholecystectomy -transition to regular diet -low fat diet x 1 month -no lifting more than 10 lbs x 4 weeks -f/u with Dr. Brizuela in 2 weeks -ok for discharge from surgical standpoint Ro Prieto [facility] February 26, 2018 13:25
--- NOTE | 2018-02-26 13:26 | HHI.DS ---
Discharge Summary Admission Date February 24, 2018 at 11:39 Discharge Date: February 26, 2018 Admitting Diagnosis Cholecystitis (1) Cholelithiasis ICD Code: K80.20 - Calculus of gallbladder without cholecystitis without obstruction (2) Cholecystitis ICD Code: K81.9 - Cholecystitis, unspecified Status: Acute (3) Choledocholithiasis ICD Code: K80.50 - Calculus of bile duct without cholangitis or cholecystitis without obstruction Procedures 02/24/18 ERCP 02/[address] Brizuela Brief History - From Admission 32-year-old female with biliary colic/gallstones presents to the emergency department for evaluation of abdominal pain. The patient reports that approximately 2 months ago she was initially diagnosed with gallstones. She had a repeat episode last Friday where she was seen at [facility] and given pain medication and told to follow-up with a general surgeon. Patient has been unable to obtain a follow-up appointment and felt her pain was moderately well controlled on her pain medication until 2:30 PM yesterday. The patient reports she started having upper quadrant (right greater than left) abdominal pain that radiated to her back. She denies any emesis. No diarrhea. No fevers/chills. No chest pain or shortness of breath. No weakness. No lateralizing signs/symptoms. CBC/BMP: 02/24/18 0625 02/24/18 0625 Significant Findings Laboratory Tests Test 02/24/18 06:25 02/25/18 07:16 02/26/18 04:19 Red Blood Count 3.41 MIL/MM3 (4.00-5.30) Hemoglobin 9.7 GM/DL (11.6-15.3) Hematocrit 29.2 % (35.0-46.0) Platelet Count 493 TH/MM3 (150-450) Neutrophils (%) (Auto) 77.9 % (16.0-70.0) Blood Urea Nitrogen 6 MG/DL (7-18) Random Glucose 68 MG/DL (74-106) Total Protein 6.3 GM/DL (6.4-8.2) Albumin 2.9 GM/DL (3.4-5.0) 2.9 GM/DL (3.4-5.0) Calcium Level 8.1 MG/DL (8.5-10.1) Alkaline Phosphatase 250 U/L (45-117) 224 U/L (45-117) Aspartate Amino Transf (AST/SGOT) 93 U/L (15-37) 39 U/L (15-37) Alanine Aminotransferase (ALT/SGPT) 227 U/L (10-53) 173 U/L (10-53) Total Bilirubin 1.7 MG/DL (0.2-1.0) 1.1 MG/DL (0.2-1.0) Chloride Level 108 MEQ/L (98-107) Percent Iron Saturation 16.7 % (20-50) Direct Bilirubin 1.0 MG/DL (0.0-0.2) 0.6 MG/DL (0.0-0.2) Lipase 610 U/L (73-393) Imaging Last Impressions Pelvis Ultrasound 02/24/18 0000 Signed Impressions: Service Date/Time: Saturday, February 24, 2018 10:01 - CONCLUSION: 1. Two heterogeneous myometrial masses likely reflecting uterine leiomyomas with the largest measuring 4.2 cm near the fundus. 2. Minimally complex large right ovarian cyst measuring up to 11.7 cm. Please see recommendation below. 3. Simple 2.9 cm left ovarian cyst which does not require followup. 4. Small amount of free fluid in the pelvis. Pelvic ultrasound follow-up in 6-12 weeks is recommended for hemorrhagic adnexal cysts 5-7 cm in women of reproductive age. If unchanged or unresolved, follow with contrast-enhanced pelvic MRI or ultrasound. Unless classic endometrioma or dermoid is then confirmed on contrast-enhanced pelvic MRI or ultrasound follow-up, consider surgical consultation. Reference: Simran See MD GI Procedure 02/24/18 0000 Signed Impressions: Service Date/Time: Saturday, February 24, 2018 15:57 - CONCLUSION: ERCP as above. Adams Arboleda MD Cholangiopancreatography MRI 02/23/18 0000 Signed Impressions: Service Date/Time: Friday, February 23, 2018 11:07 - CONCLUSION: The examination demonstrates a distended gallbladder with numerous punctate stones within the gallbladder. The gallbladder wall appears mildly thickened. There is a punctate filling defects seen in the distal duct on a single projection on the MRCP T2 images. This may represent a 1 mm stone in the distal duct. The duct is at the upper limits of normal in size measuring approximate 6 mm. There is a large cystic structure arising in the right adnexa which is only partially visualized. Presumably, this is ovarian in origin it measures approximately 11.0 x 6.6 cm. Pelvic ultrasound would be of benefit for further assessment. Quentin Simpson MD Gall Bladder Ultrasound 02/22/18 0000 Signed Impressions: Service Date/Time: Thursday, February 22, 2018 23:04 - CONCLUSION: 1. Multiple gallstones with gallbladder sludge. No acute findings. Bharathi Gerber MD PE at Discharge GENERAL: This is a well-nourished, well-developed patient, in no apparent distress. CARDIOVASCULAR: Regular rate and rhythm RESPIRATORY: Clear to auscultation. Breath sounds equal bilaterally. GASTROINTESTINAL: Abdomen soft, non-tender, nondistended. Normal active bowel sounds. laparoscopic incisions present with steristrips dry and intact MUSCULOSKELETAL: Extremities without clubbing, cyanosis, or edema. NEURO: Alert & Oriented x4 to person, place, time, situation. Moves all ext x4 Hospital Course 1. Abdominal pain, choledocholithiasis: Status post MRCP, ERCP. Appreciate general surgery and gastroenterology recommendations. s/p laparoscopic cholecystectomy 02/[address] Brizuela. Cleared for DC per general surgery 2. Transaminitis: LFTs are trending down. Secondary to above. GI has signed off and cleared for DC. 3. Ovarian cyst, uterine fibroids: Patient will need follow-up imaging. Consult gynecology, appreciate input. Cleared for DC per EVAPORATOR OPERATOR. Patient instructed to follow up with Dr. Young outpatient after DC. Called Dr. Young' s office left message with Mary who states that she will have Dr. Young review the records then call patient to schedule appointment. 5. DVT prophylaxis: Ambulatory. No chemical prophylaxis in anticipation of surgery. Pt Condition on Discharge: Stable Discharge Disposition: Discharge Home Discharge Time: > 30 minutes Discharge Instructions DIET: Follow Instructions for: As Tolerated, No Restrictions Activities you can perform: See Additionl Instruction Other Activity Instructions: activity per surgery Follow up Referrals: Gastroenterology - 2 Weeks with Dafne Melchor MD EVAPORATOR OPERATOR - [address] Young PCP Follow-up - 1 Week Surgical - 2 Weeks with Jakub Brizuela MD New Medications: Hydrocodone-Acetaminophen ([place]) 5 Mg-325 Mg Tab 1 TAB PO Q4H PRN for PAIN for 3 Days, #18 TAB 0 Refills Marybeth Pemberton February 26, 2018 13:26
[2018-02-26 16:00] VITALS: BP_SYST 105; BP_SYST 114; BP_DIAS 56; BP_DIAS 57; PULSE 76; PULSE 77; RESP 16; TEMP 98.7; TEMP 98.8; O2SAT 98
--- NOTE | 2018-03-01 10:09 | MP ---
cc: Jakub Brizuela MD DATE OF OPERATION: DATE OF OPERATION: 02/25/2018. PREOPERATIVE DIAGNOSIS: Cholecystitis with recent choledocholithiasis. POSTOPERATIVE DIAGNOSIS: Cholecystitis with recent choledocholithiasis. PROCEDURE PERFORMED: Laparoscopic cholecystectomy. SURGEON: Jakub Brizuela MD ANESTHESIA: General endotracheal anesthesia. ESTIMATED BLOOD LOSS: Scant. FINDINGS: Thick walled gallbladder with stones. SPECIMENS: Gallbladder with stones. COMPLICATIONS: None. DESCRIPTION OF PROCEDURE: The patient was brought to the operating room, and placed on the operating table in supine position. Bilateral sequential inflation device placed on lower extremities. General anesthesia instituted. The abdomen was prepped and draped sterilely. A point in the supraumbilical region anesthetized with 0.25% Marcaine with epinephrine. Skin incision was made. A 5 mm Optiview port placed under direct vision and a pneumoperitoneum created. Under direct vision, two 5 mm right upper quadrant, a 12 mm epigastric port was placed. Prior to placement of all ports the skin and peritoneum anesthetized with 0.25% Marcaine with epinephrine. The patient was placed in reverse Trendelenburg position with right side up. The gallbladder was retracted into the upper abdomen. Findings as above. Using blunt dissection and hydrodissection, the cystic duct was identified, it was circumferentially dissected. Cystic artery was then identified and circumferentially dissected. The cystic artery was ligated with Hemoclips and divided between the clips. The cystic duct was identified with Hemoclips and divided between the clips. The gallbladder was removed from the liver bed using the Bovie. Hemostasis achieved along the way using the Bovie. The gallbladder was retrieved from the peritoneal cavity in an Endopouch through the 12 mm port site. The operative field was inspected, hemostasis was obtained. CO2 was released. All ports were removed. The fascia at the 12 mm port site approximated with 0 Vicryl. Wound irrigated with saline. All skin incisions closed with 4-0 Monocryl. The abdominal wall was cleaned and a sterile dressing placed. The patient was awakened and taken to the Recovery Room. Jakub Brizuela MD JLS/TL , 09:45 AM , 10:07 AM
== END 2018-02-26 18:11 | disposition home or self-care (01) | DRG 419 ==
LOC: NEPC 22:12 → OBSVTOIN 02-23 00:19 → INTOOBSV 02-23 00:19 → NEDA 02-23 00:19 → NEPHCDU 02-23 01:10 → NEPFCDU 02-23 01:20 → OBSVTOIN 02-24 11:39 → N06B 02-24 17:55
PROVIDERS: ADMIT Family Medicine; ATTEND Family Medicine
PROC: 0FC98ZZ Extirpation of Matter from Common Bile Duct, Via Natural or Artificial Opening Endoscopic (ICD-10-PCS; 2018-02-24)
PROC: 0FT44ZZ Resection of Gallbladder, Percutaneous Endoscopic Approach (ICD-10-PCS; principal; 2018-02-25 16:29)
DX: K80.64 Calculus of gallbladder and bile duct with chronic cholecystitis without obstruction (principal); D25.9 Leiomyoma of uterus, unspecified; R74.0 Nonspecific elevation of levels of transaminase and lactic acid dehydrogenase [LDH]; D50.9 Iron deficiency anemia, unspecified; N83.201 Unspecified ovarian cyst, right side; F17.210 Nicotine dependence, cigarettes, uncomplicated
CPT/HCPCS: 74181; 74330; 76377; 76705; 76830; 76856; 80053; 80074; 80076; 80307; 82248; 82728; 83540; 83550; 83690; 84703; 85025; 88304; 96361; 96365; 96375; 96376; C1769; G0378; J0780; J1100; J1885; J2250; J2270; J2405; J2543; J2710; J3010; J7030; J7120